=== PATIENT | female | born 1965 | race Two or more races ===

== ENCOUNTER 2016-06-11 06:45 | Inpatient (IN) | payer MEDICAID ==
[~2016-06-11] VITALS: Ht 154.9 cm; Wt 63.0 kg
[2016-06-11 06:45] VITALS: BP 105/63
[~2016-06-11 06:45] MED LIST: FERROUS SULFAT325 M2 ORAL; FOLIC ACID0.4 MG ORAL; MULTI VITAMIN1 EACH ORAL; NKM
--- NOTE | 2016-06-11 07:05 | Emergency Room Report ---
History of Present Illness General Chief Complaint: Syncope Source: Patient Present Illness HPI 51 YO F with known uterine fibroid presents with heavy non menstrual bleeding since last night. States she used " a whole box of pads." Passed out in bathroom today, denies any trauma. Denies precipitating headache, chest pain, SOB, syncope. States bleeding currently has subsided. notes she has pallor. She currently c/o left sided body pain. Denies abd pain, nausea/ vomiting, diarrhea, fever?chills, urinary complaints. Dec 2015 and Apr 2015 admissions also for anemia. Has not followed up with [facility] E[facility] or had sono since ?Apr 2015 per patient. EMR states "There are 2-3 uterine fibroids measuring up to 2.7 cm" in Apr 2015 sono. Allergies: Coded Allergies: NO KNOWN ALLERGIES (Unverified Allergy, Unknown, 05/12/15) Patient History Past Medical History: other - uterine fibroids Past Surgical History: none Pertinent Family History: none Social History: Denies: alcohol use, drug use, smoking Last Menstrual Period: May Now: No Immunizations: UTD Reviewed Nursing Documentation: PMH: Agreed, PSxH: Agreed Nursing Documentation-PMH Past Medical History: No Stated History Hx Cardiac Problems: No Hx Cancer: No Hx Gastrointestinal Problems: No Hx Neurological Problems: No Review of Systems All Other Systems: negative except mentioned in HPI Physical Exam Vital Signs Date Time Temp Pulse Resp B/P Pulse Ox O2 Delivery O2 Flow Rate FiO2 06/11/16 06:40 98.2 83 16 113/86 99 Room Air Sp02 EP Interpretation: reviewed, normal General Appearance: normal inspection, well appearing, no apparent distress, alert, GCS 15, non-toxic Head: normocephalic, atraumatic Eyes: bilateral eye EOMI, bilateral eye PERRL ENT: normal ENT inspection, hearing grossly normal, normal voice Neck: normal inspection, full range of motion, supple, no bony tend Respiratory: normal inspection, lungs clear, normal breath sounds, no respiratory distress, no retraction, no wheezing Cardiovascular #1: regular rate, rhythm, no edema Gastrointestinal: normal inspection, normal bowel sounds, non tender, soft, no guarding, no hernia Genitourinary: no CVA tenderness, other - no dalton vaginal hemorrage currently Musculoskeletal: normal inspection, back normal, normal range of motion, So' s Sign negative Neurologic: normal inspection, alert, oriented x3, responsive, painter plate III-XII nml as tested, motor strength/tone normal, speech normal Psychiatric: normal inspection, judgement/insight normal, mood/affect normal Skin: normal inspection, no rash, pallor Medical Decision Making Diagnostic Impression: Primary Impression: Syncope Qualified Codes: R55 - Syncope and collapse Additional Impression: Anemia Qualified Codes: D64.9 - Anemia, unspecified ER Course 51 YO F with likely re-bleeding of known uterine fibroid. VSS. Afebrile. Pallor obvious on exam Abd is benign, no focal ttp on exam Labs show Hb 6.7, Coags and platelets normal. ECG is NSR. Troponin 0. Unlikely cardiac cause of syncope given vaginal bleeding and anemia Transfusing 2U Endorsed to Dr Santoyo for syncope/anemia at 939am for tele admission Pelvic sono to quantify fibroids is pending. I doubt degenerative fibroid given benign exam EKG Diagnostic Results Rate: normal Rhythm: NSR ST Segments: no acute changes ASA given to the pt in ED: No Rhythm Strip Diag. Results EP Interpretation: yes Rate: 84 Rhythm: NSR, no PVC's, no ectopy Last Vital Signs Date Time Temp Pulse Resp B/P Pulse Ox O2 Delivery O2 Flow Rate FiO2 06/11/16 06:45 98.5 84 14 105/63 99 Room Air Status: improved Disposition: ADMITTED INPATIENT Condition: Serious GALILEO SANTIAGO M.D. Jun 11, 2016 07:05
[2016-06-11 07:52] LABS: PROTHROMBIN TIME 10.5 SEC (9.30-11.50)
[2016-06-11 07:55] LABS: ALANINE AMINOTRANSFERASE 11 U/L (3-33); ALBUMIN/GLOBULIN RATIO 1.4 (1.0-2.7); ANION GAP 14 (5-15); ASPARTATE AMINO TRANSFERASE 12 U/L (5-40); CALCIUM 7.8 mg/dL (8.6-10.2); CARBON DIOXIDE 22 mEQ/L (20-30); CHLORIDE 102 mEQ/L (98-107); CREATININE 0.6 mg/dL (0.5-0.9); GLOMERULAR FILTRATION RATE > 60 mL/min (>60); HEMOLYSIS 1; LIPASE 23 U/L (< 60); POTASSIUM 4.1 mEQ/L (3.4-4.9); SODIUM 138 mEQ/L (135-145); TOTAL PROTEIN 6.4 g/dL (6.6-8.7)
[2016-06-11 07:57] LABS: APPEARANCE,URINE VERY CLOUDY; KETONES,URINE NEGATIVE (NEGATIVE); LEUKOCYTE ESTERASE ,URINE 2+ (NEGATIVE); NITRITE,URINE NEGATIVE (NEGATIVE); PH,URINE 6 (4.5-8.0); PROTEIN,URINE 3+ (NEGATIVE); UROBILINOGEN,URINE NORMAL MG/DL (0.0-1.0)
[2016-06-11 08:01] LABS: BACTERIA,URINE FEW /HPF; RBC,URINE TNTC /HPF (0 - 2); SQUAMOUS EPITHELIAL CELL,UR FEW /LPF (NONE/OCC)
[2016-06-11 09:21] LABS: MEAN CORPUSCULAR HEMOGLOBIN 19.5 PG (27.0-31.0); MEAN CORPUSCULAR HGB CONC 30.8 G/DL (32.0-36.0); MEAN CORPUSCULAR VOLUME 64 FL (80-99); MEAN PLATELET VOLUME 7.7 FL (6.5-10.1); PLATELET COUNT 318 K/UL (150-450); RED BLOOD COUNT 3.43 M/UL (4.20-5.40); RED CELL DISTRIBUTION WIDTH 18.2 % (11.6-14.8)
[2016-06-11 10:13] LABS: ANISOCYTOSIS 1+; BAND NEUTROPHILS % (MANUAL) 1 % (0-8); BASOPHILS % (MANUAL) 0 % (0-2); EOSINOPHILS % (MANUAL) 14 % (0-3); HYPOCHROMASIA 1+; LYMPHOCYTES % (MANUAL) 7 % (20-45); MICROCYTES 2+; NEUTROPHILS % (MANUAL) 73 % (45-75); PLATELET ESTIMATE ADEQUATE; PLATELET MORPHOLOGY NORMAL; TOTAL CELLS COUNTED 100
[2016-06-11 10:15] LABS: POLYCHROMASIA OCCASIONAL
[2016-06-11] MEDS ORDERED: Tylenol #3 tab (300mg/30mg) ORAL ONE (10:15)
[2016-06-11 11:28] VITALS: BP 100/53
[2016-06-11] MEDS ORDERED: Morphine Sulfate 2mg/ml Inj IVP PRN (11:45)
[2016-06-11] MEDS ORDERED: Miralax 17gm pkt ORAL PRN (11:45)
[2016-06-11] MEDS ORDERED: Mylanta II UD 30ml ORAL PRN (11:45)
[2016-06-11] MEDS ORDERED: LORazepam Inj 2mg/ml 1ml IV PRN (11:45)
[2016-06-11 11:48] VITALS: BP 100/64
[2016-06-11 14:01] LABS: PATH BLOOD SMEAR/OMC SENT TO PATHOLOGIST; RETICULOCYTE COUNT 1.8 % (0.0-2.0)
[2016-06-11 14:10] LABS: ERYTHROCYTE SEDIMENTATION RATE 24 MM/HR (0-20)
[2016-06-11 16:00] VITALS: BP 116/65
--- NOTE | 2016-06-11 16:10 | Infectious Diseases Prog Note ---
Assessment/Plan Problems: (1) UTI (urinary tract infection) Assessment & Plan: will send urine for culture , and start ceftriaxone empirically for now (2) Anemia Assessment & Plan: due to fibroid bleeding , recommend HOUSEKEEPER/CUSTODIAN/LAUNDRY WORKER consult, and monitor H&H, transfuse as needed (3) Syncope Assessment & Plan: suspect due to blood loss, continue tele monitor, monitor H& H transfuse as needed, consult neurology (4) Menometrorrhagia Assessment & Plan: due to fibroids bleeding, consult HOUSEKEEPER/CUSTODIAN/LAUNDRY WORKER, and follow up as an outpatient Subjective Allergies: Coded Allergies: NO KNOWN ALLERGIES (Unverified Allergy, Unknown, 05/12/15) Objective Vital Signs Last 24 Hour Vital Signs Date Time Temp Pulse Resp B/P Pulse Ox O2 Delivery O2 Flow Rate FiO2 06/11/16 11:48 98.8 89 14 100/64 99 Room Air 06/11/16 11:48 98.7 91 14 100/53 99 Room Air 06/11/16 11:31 98.7 06/11/16 11:28 98.7 91 14 100/53 99 Room Air 06/11/16 06:45 98.5 84 14 105/63 99 Room Air 06/11/16 06:40 98.2 83 16 113/86 99 Room Air Height (Feet): 5 Height (Inches): 1.00 Weight (Pounds): 139 Laboratory Tests Test 06/11/16 07:14 06/11/16 09:15 Prothrombin Time 10.5 SEC (9.30-11.50) Prothromb Time International Ratio 1.0 (0.9-1.1) Activated Partial Thromboplast Time 24 SEC (23-33) Urine Color Red Urine Appearance Very cloudy Urine pH 6 (4.5-8.0) Urine Specific [place] 1.020 (1.005-1.035) Urine Protein 3+ (NEGATIVE) H Urine Glucose (UA) Negative (NEGATIVE) Urine Ketones Negative (NEGATIVE) Urine Occult Blood 5+ (NEGATIVE) H Urine Nitrite Negative (NEGATIVE) Urine Bilirubin Negative (NEGATIVE) Urine Urobilinogen Normal MG/DL (0.0-1.0) Urine Leukocyte Esterase 2+ (NEGATIVE) H Urine RBC Tntc /HPF (0 - 2) H Urine WBC 5-10 /HPF (0 - 2) H Urine Squamous Epithelial Cells Few /LPF (NONE/OCC) Urine Bacteria Few /HPF (NONE) Sodium Level 138 mEQ/L (135-145) Potassium Level 4.1 mEQ/L (3.4-4.9) Chloride Level 102 mEQ/L (98-107) Carbon Dioxide Level 22 mEQ/L (20-30) Anion Gap 14 (5-15) Blood Urea Nitrogen 15 mg/dL (7-23) Creatinine 0.6 mg/dL (0.5-0.9) Estimat Glomerular Filtration Rate > 60 mL/min (>60) Glucose Level 122 mg/dL (74-106) H Calcium Level 7.8 mg/dL (8.6-10.2) L Total Bilirubin < 0.2 mg/dL (0.0-1.2) Aspartate Amino Transf (AST/SGOT) 12 U/L (5-40) Alanine Aminotransferase (ALT/SGPT) 11 U/L (3-33) Alkaline Phosphatase 60 U/L (35-104) Total Protein 6.4 g/dL (6.6-8.7) L Albumin 3.8 g/dL (3.5-5.2) Globulin 2.6 g/dL Albumin/Globulin Ratio 1.4 (1.0-2.7) Lipase 23 U/L (< 60) White Blood Count 10.0 K/UL (4.8-10.8) Red Blood Count 3.43 M/UL (4.20-5.40) L Hemoglobin 6.7 G/DL (12.0-16.0) *L Hematocrit 21.8 % (37.0-47.0) L Mean Corpuscular Volume 64 FL (80-99) L Mean Corpuscular Hemoglobin 19.5 PG (27.0-31.0) L Mean Corpuscular Hemoglobin Concent 30.8 G/DL (32.0-36.0) L Red Cell Distribution Width 18.2 % (11.6-14.8) H Platelet Count 318 K/UL (150-450) Mean Platelet Volume 7.7 FL (6.5-10.1) Neutrophils (%) (Auto) % (45.0-75.0) Lymphocytes (%) (Auto) % (20.0-45.0) Monocytes (%) (Auto) % (1.0-10.0) Eosinophils (%) (Auto) % (0.0-3.0) Basophils (%) (Auto) % (0.0-2.0) Differential Total Cells Counted 100 Neutrophils % (Manual) 73 % (45-75) Lymphocytes % (Manual) 7 % (20-45) L Monocytes % (Manual) 5 % (1-10) Eosinophils % (Manual) 14 % (0-3) H Basophils % (Manual) 0 % (0-2) Band Neutrophils 1 % (0-8) Platelet Estimate Adequate Platelet Morphology Normal Polychromasia Occasional Hypochromasia 1+ Anisocytosis 1+ Microcytosis 2+ Erythrocyte Sedimentation Rate 24 MM/HR (0-20) H Reticulocyte Count 1.8 % (0.0-2.0) Iron Level 16 ug/dL (37-145) L Total Iron Binding Capacity 344 ug/dL (250-400) Percent Iron Saturation 5 % (15-50) L Unsaturated Iron Binding 328 ug/dL (112-346) Lactate Dehydrogenase 167 U/L (135-230) Carcinoembryonic Antigen 0.9 ng/mL Vitamin B12 Level 479 pg/mL (211-946) Folate Pending Current Medications Medications (Trade) Dose Ordered Sig/Kaylee Route PRN Reason Start Time Stop Time Status Last Admin Dose Admin Acetaminophen (Tylenol) 650 mg Q4H PRN ORAL T>100.5 06/11/16 11:45 07/11/16 11:44 Al Hydroxide/Mg Hydroxide (Mylanta II) 30 ml Q6H PRN ORAL dyspepsia 06/11/16 11:45 07/11/16 11:44 Dextrose (Dextrose 50%) STAT PRN IV Hypoglycemia 06/11/16 11:45 07/11/16 11:44 Lorazepam (Ativan 2mg/ml 1ml) 0.5 mg Q4H PRN IV For Anxiety 06/11/16 11:45 06/18/16 11:44 Morphine Sulfate (Morphine Sulfate) 1 mg Q4H PRN IVP PAIN 4-10 06/11/16 11:45 06/18/16 11:44 Ondansetron HCl (Zofran) 4 mg Q6H PRN IVP Nausea & Vomiting 06/11/16 11:45 07/11/16 11:44 Polyethylene Glycol (Miralax) 17 gm HSPRN PRN ORAL Constipation 06/11/16 11:45 2/25/17 11:44 Zolpidem Tartrate (Ambien) 5 mg HSPRN PRN ORAL Insomnia 06/11/16 21:00 07/11/16 20:59 Teo Wade M.D. Jun 11, 2016 16:10
[2016-06-11] MEDS ORDERED: cefTRIAXone 1 GM in D5W 55 ML IVPB SCH (18:00)
--- NOTE | 2016-06-11 18:32 | Cardiology Progress Note ---
Assessment/Plan Assessment/Plan The patient is seen and examined, full consult note is dictated. Objective Last 24 Hour Vital Signs Date Time Temp Pulse Resp B/P Pulse Ox O2 Delivery O2 Flow Rate FiO2 06/11/16 16:00 99.1 98 21 116/65 98 Room Air 06/11/16 11:48 98.8 89 14 100/64 99 Room Air 06/11/16 11:48 98.7 91 14 100/53 99 Room Air 06/11/16 11:31 98.7 06/11/16 11:28 98.7 91 14 100/53 99 Room Air 06/11/16 06:45 98.5 84 14 105/63 99 Room Air 06/11/16 06:40 98.2 83 16 113/86 99 Room Air Intake and Output 06/10/16 06/11/16 19:00 07:00 Output Total 0 ml Balance 0 ml Output Urine Total 0 ml Laboratory Tests Test 06/11/16 07:14 06/11/16 09:15 Prothrombin Time 10.5 SEC (9.30-11.50) Prothromb Time International Ratio 1.0 (0.9-1.1) Activated Partial Thromboplast Time 24 SEC (23-33) Urine Color Red Urine Appearance Very cloudy Urine pH 6 (4.5-8.0) Urine Specific [place] 1.020 (1.005-1.035) Urine Protein 3+ (NEGATIVE) H Urine Glucose (UA) Negative (NEGATIVE) Urine Ketones Negative (NEGATIVE) Urine Occult Blood 5+ (NEGATIVE) H Urine Nitrite Negative (NEGATIVE) Urine Bilirubin Negative (NEGATIVE) Urine Urobilinogen Normal MG/DL (0.0-1.0) Urine Leukocyte Esterase 2+ (NEGATIVE) H Urine RBC Tntc /HPF (0 - 2) H Urine WBC 5-10 /HPF (0 - 2) H Urine Squamous Epithelial Cells Few /LPF (NONE/OCC) Urine Bacteria Few /HPF (NONE) Sodium Level 138 mEQ/L (135-145) Potassium Level 4.1 mEQ/L (3.4-4.9) Chloride Level 102 mEQ/L (98-107) Carbon Dioxide Level 22 mEQ/L (20-30) Anion Gap 14 (5-15) Blood Urea Nitrogen 15 mg/dL (7-23) Creatinine 0.6 mg/dL (0.5-0.9) Estimat Glomerular Filtration Rate > 60 mL/min (>60) Glucose Level 122 mg/dL (74-106) H Calcium Level 7.8 mg/dL (8.6-10.2) L Total Bilirubin < 0.2 mg/dL (0.0-1.2) Aspartate Amino Transf (AST/SGOT) 12 U/L (5-40) Alanine Aminotransferase (ALT/SGPT) 11 U/L (3-33) Alkaline Phosphatase 60 U/L (35-104) Total Protein 6.4 g/dL (6.6-8.7) L Albumin 3.8 g/dL (3.5-5.2) Globulin 2.6 g/dL Albumin/Globulin Ratio 1.4 (1.0-2.7) Lipase 23 U/L (< 60) White Blood Count 10.0 K/UL (4.8-10.8) Red Blood Count 3.43 M/UL (4.20-5.40) L Hemoglobin 6.7 G/DL (12.0-16.0) *L Hematocrit 21.8 % (37.0-47.0) L Mean Corpuscular Volume 64 FL (80-99) L Mean Corpuscular Hemoglobin 19.5 PG (27.0-31.0) L Mean Corpuscular Hemoglobin Concent 30.8 G/DL (32.0-36.0) L Red Cell Distribution Width 18.2 % (11.6-14.8) H Platelet Count 318 K/UL (150-450) Mean Platelet Volume 7.7 FL (6.5-10.1) Neutrophils (%) (Auto) % (45.0-75.0) Lymphocytes (%) (Auto) % (20.0-45.0) Monocytes (%) (Auto) % (1.0-10.0) Eosinophils (%) (Auto) % (0.0-3.0) Basophils (%) (Auto) % (0.0-2.0) Differential Total Cells Counted 100 Neutrophils % (Manual) 73 % (45-75) Lymphocytes % (Manual) 7 % (20-45) L Monocytes % (Manual) 5 % (1-10) Eosinophils % (Manual) 14 % (0-3) H Basophils % (Manual) 0 % (0-2) Band Neutrophils 1 % (0-8) Platelet Estimate Adequate Platelet Morphology Normal Polychromasia Occasional Hypochromasia 1+ Anisocytosis 1+ Microcytosis 2+ Erythrocyte Sedimentation Rate 24 MM/HR (0-20) H Reticulocyte Count 1.8 % (0.0-2.0) Iron Level 16 ug/dL (37-145) L Total Iron Binding Capacity 344 ug/dL (250-400) Percent Iron Saturation 5 % (15-50) L Unsaturated Iron Binding 328 ug/dL (112-346) Lactate Dehydrogenase 167 U/L (135-230) Carcinoembryonic Antigen 0.9 ng/mL Vitamin B12 Level 479 pg/mL (211-946) Folate Pending ELVIS BROOKE Jun 11, 2016 18:32
--- NOTE | 2016-06-11 19:07 | Consultation ---
Consult Note Consult Note DATE OF CONSULTATION: 06/11/16 REFERRING PHYSICIAN: Krunal Wills M.D. REASON FOR CONSULTATION: Evaluation of severe iron deficiency anemia. IDENTIFICATION: 51-year-old female with past medical history significant for dysmenorrhea, multiple admission for anemia before who presents at this time to [facility] with weakness as well as chest tightness and shortness of breath as wel las syncope. Upon admission to the ER, CBC was performed and she was found to have hemoglobin 6.7, hematocrit 18, and platelet count 318,000. She has used 36 pads over the course of 2 days for vaginal bleeding and has a hx of fibroids. Hematology was therefore consulted for further evaluation and treatment. She has not been following up with her gynencologist for several months, has never had surgery for uterus. Per discussion with her and her children, she says that she has had these symptoms for the past one to two years. The patient otherwise denies any nausea, vomiting, chest pain, or shortness of breath. PAST MEDICAL HISTORY: Dysmenorrhea. Fibroids. Anemia iron deficiency PAST SURGICAL HISTORY: None. MEDICATIONS: Ferrous sulfate FAMILY HISTORY: Noncontributory. SOCIAL HISTORY: No drug use, alcohol, or smoking. ALLERGIES: No known drug allergies. REVIEW OF SYSTEMS: General: Some weight loss and some fatigue; however, no fever or chills. Skin : No rashes. No itching. HEENT: No headaches, visual changes or double vision, stuffiness or nose discharge, or bleeding from throat. Neck: No lumps in neck or changes in breasts. Respiratory: No cough, sputum, or coughing up blood. Cardiovascular: No chest pain, discomfort, or tightness. Gastrointestinal: No swallowing difficulties or heart burn. Musculoskeletal: No muscle or joint pain. Urinary: No frequency, urgency, or burning. Neurologic: No dizziness, fainting, or seizures. Hematologic: Some bleeding noted recently over the past week. Endocrine: No heat or cold intolerance. Psychiatric: No nervousness, stress, or depression. PHYSICAL EXAMINATION: GENERAL: The patient is in no acute distress. VITAL SIGNS: Date Time Temp Pulse Resp B/P Pulse Ox O2 Delivery O2 Flow Rate FiO2 06/11/16 16:00 99.1 98 21 116/65 98 Room Air 06/11/16 11:48 98.8 89 14 100/64 99 Room Air 06/11/16 11:48 98.7 91 14 100/53 99 Room Air 06/11/16 11:31 98.7 06/11/16 11:28 98.7 91 14 100/53 99 Room Air 06/11/16 06:45 98.5 84 14 105/63 99 Room Air 06/11/16 06:40 98.2 83 16 113/86 99 Room Air PULMONARY: Decreased breath sounds bilaterally. No crackles, wheezes, or rales. CARDIOVASCULAR: Regular rate and rhythm. No MGR. ABDOMEN: Soft, nontender, and nondistended. EXTREMITIES: No cyanosis, clubbing, or edema. LABORATORY DATA: Laboratory Tests Test 06/11/16 07:14 06/11/16 09:15 Prothrombin Time 10.5 SEC (9.30-11.50) Prothromb Time International Ratio 1.0 (0.9-1.1) Activated Partial Thromboplast Time 24 SEC (23-33) Urine Color Red Urine Appearance Very cloudy Urine pH 6 (4.5-8.0) Urine Specific [place] 1.020 (1.005-1.035) Urine Protein 3+ (NEGATIVE) H Urine Glucose (UA) Negative (NEGATIVE) Urine Ketones Negative (NEGATIVE) Urine Occult Blood 5+ (NEGATIVE) H Urine Nitrite Negative (NEGATIVE) Urine Bilirubin Negative (NEGATIVE) Urine Urobilinogen Normal MG/DL (0.0-1.0) Urine Leukocyte Esterase 2+ (NEGATIVE) H Urine RBC Tntc /HPF (0 - 2) H Urine WBC 5-10 /HPF (0 - 2) H Urine Squamous Epithelial Cells Few /LPF (NONE/OCC) Urine Bacteria Few /HPF (NONE) Sodium Level 138 mEQ/L (135-145) Potassium Level 4.1 mEQ/L (3.4-4.9) Chloride Level 102 mEQ/L (98-107) Carbon Dioxide Level 22 mEQ/L (20-30) Anion Gap 14 (5-15) Blood Urea Nitrogen 15 mg/dL (7-23) Creatinine 0.6 mg/dL (0.5-0.9) Estimat Glomerular Filtration Rate > 60 mL/min (>60) Glucose Level 122 mg/dL (74-106) H Calcium Level 7.8 mg/dL (8.6-10.2) L Total Bilirubin < 0.2 mg/dL (0.0-1.2) Aspartate Amino Transf (AST/SGOT) 12 U/L (5-40) Alanine Aminotransferase (ALT/SGPT) 11 U/L (3-33) Alkaline Phosphatase 60 U/L (35-104) Total Protein 6.4 g/dL (6.6-8.7) L Albumin 3.8 g/dL (3.5-5.2) Globulin 2.6 g/dL Albumin/Globulin Ratio 1.4 (1.0-2.7) Lipase 23 U/L (< 60) White Blood Count 10.0 K/UL (4.8-10.8) Red Blood Count 3.43 M/UL (4.20-5.40) L Hemoglobin 6.7 G/DL (12.0-16.0) *L Hematocrit 21.8 % (37.0-47.0) L Mean Corpuscular Volume 64 FL (80-99) L Mean Corpuscular Hemoglobin 19.5 PG (27.0-31.0) L Mean Corpuscular Hemoglobin Concent 30.8 G/DL (32.0-36.0) L Red Cell Distribution Width 18.2 % (11.6-14.8) H Platelet Count 318 K/UL (150-450) Mean Platelet Volume 7.7 FL (6.5-10.1) Neutrophils (%) (Auto) % (45.0-75.0) Lymphocytes (%) (Auto) % (20.0-45.0) Monocytes (%) (Auto) % (1.0-10.0) Eosinophils (%) (Auto) % (0.0-3.0) Basophils (%) (Auto) % (0.0-2.0) Differential Total Cells Counted 100 Neutrophils % (Manual) 73 % (45-75) Lymphocytes % (Manual) 7 % (20-45) L Monocytes % (Manual) 5 % (1-10) Eosinophils % (Manual) 14 % (0-3) H Basophils % (Manual) 0 % (0-2) Band Neutrophils 1 % (0-8) Platelet Estimate Adequate Platelet Morphology Normal Polychromasia Occasional Hypochromasia 1+ Anisocytosis 1+ Microcytosis 2+ Erythrocyte Sedimentation Rate 24 MM/HR (0-20) H Reticulocyte Count 1.8 % (0.0-2.0) Iron Level 16 ug/dL (37-145) L Total Iron Binding Capacity 344 ug/dL (250-400) Percent Iron Saturation 5 % (15-50) L Unsaturated Iron Binding 328 ug/dL (112-346) Lactate Dehydrogenase 167 U/L (135-230) Carcinoembryonic Antigen 0.9 ng/mL Vitamin B12 Level 479 pg/mL (211-946) Folate Pending ASSESSMENT: 1. Anemia secondary iron deficiency to likely menstrual bleeding. Iron panel shows iron deficiency similar to prior ones, will begin iron IV 2. Anemia secondary to menstrual bleeding 3. Decreased hemoglobin and hematocrit, rule out gastrointestinal bleed. 4. UTI hx, infection 5. Dehydration. 6. Syncope 7. Menorrhagia RECOMMENDATIONS: 1. Monitor counts. 2. Transfuse if needed. Hgb goal >7 3. Send for ferritin 4. Imaging reviewed 5. Start the patient on Venofer 6. Supportive care. 7. Nutritional support. 8. Discussed with staff. Thank you, Dr. Krunal Wills, for this kind referral. Please do not hesitate to contact me with any further questions. MD Jo Mora Roman L. Jun 11, 2016 19:07
[2016-06-11 20:00] VITALS: BP 130/72
[2016-06-11] MEDS ORDERED: Zolpidem 5mg tab ORAL PRN (21:00)
--- NOTE | 2016-06-11 22:37 | Consultation ---
DATE OF CONSULTATION: INFECTIOUS DISEASE CONSULTATION REQUESTING PHYSICIAN: Krunal Wills M.D. REASON FOR CONSULTATION: Urinary tract infection. Recommendation for antibiotics therapy HISTORY OF PRESENT ILLNESS: The patient is a 51-year-old female with history of uterine fibroids, presented to [facility] with heavy menstrual bleeding and syncopal episode. The patient was on her period about a week ago, then it stopped as usual, but last two days, she started having heavy bleeding again with right lower quadrant abdominal pain. The patient was going to the bathroom more frequently. Denied any nausea or vomiting. She had diarrhea. She felt that she had fever, but no chills. Denied any cough or shortness of breath. The patient evaluated with CIVIL ENGINEERING DESIGN DRAFTSPERSON last year as an outpatient and she had a Pap smear that was normal as per her report. She has been admitted here to the hospital in December 2015 for the menstrual bleeding and she was transfused blood and discharged home. The patient had urinalysis, showed evidence of urine infection. So, I was consulted by the primary provider for antibiotics recommendation. PAST MEDICAL HISTORY: Significant for uterine fibroids and vaginal bleeding. PAST SURGICAL HISTORY: Negative. MEDICATIONS: She is on Ambien, Tylenol, morphine sulfate, MiraLAX, Zofran, Ativan and Mylanta. ALLERGIES: She has no known drug allergy. 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 REVIEW OF SYSTEMS: A 12-point of system reviewed were all negative apart from the one I mentioned above in my History and Physical. PHYSICAL EXAMINATION: GENERAL: The patient is middle-aged female, lying in bed, awake, alert, not in distress. VITAL SIGNS: Temperature 99.1 degrees, pulse 98, respirations 21, blood pressure 116/65, and pulse oximetry 98% on room air. HEENT: Normocephalic and atraumatic. Pupils are reactive to light equally. Pale sclera. Dry oral mucosa. No exudate. NECK: Supple. No lymphadenopathy. CARDIOVASCULAR: Regular rate and rhythm. No murmur. LUNGS: Clear bilaterally. No wheezing or rhonchi. ABDOMEN: Soft, nontender, and nondistended. Positive bowel sounds. No hepatosplenomegaly or ascites. EXTREMITIES: No edema. No cyanosis. LABORATORY AND DIAGNOSTIC DATA: White count 10,000, hemoglobin 6.7, hematocrit 21.8 and platelet count 318,000. BUN of 15 and creatinine of 0.6. Calcium of 7.8. Iron of 16. Alkaline phosphatase of 60. Urinalysis showed +2 leukocyte esterase, WBC 5 to 10, urine bacteria. ASSESSMENT AND PLAN: 1. Urinary tract infection. We will send urine for culture and start ceftriaxone empirically for now. 2. Anemia due to fibroids bleeding, most likely recommend CIVIL ENGINEERING DESIGN DRAFTSPERSON consultation for immediate intervention. Monitor hemoglobin and hematocrit and transfuse blood as needed. 3. Syncope, suspect due to blood loss. Continue school lunch monitor. Monitor hemoglobin and hematocrit, transfuse blood as needed. Consult Neurology. 4. Menometrorrhagia due to fibroid bleeding. Consult CIVIL ENGINEERING DESIGN DRAFTSPERSON. Follow up with as an outpatient. Monitor hemoglobin and hematocrit. Thank you. Teo Wade M.D. DR: KARI JOB#: [id number] CC:
--- NOTE | 2016-06-11 22:57 | History and Physical Report ---
DATE OF ADMISSION: 06/11/2016 TIME: 3 p.m. CONSULTANTS: 1. Dr. Nieves. 2. Morena Santoyo M.D. 3. Dr. Osorio. 4. Damaso Gorman M.D. 5. Tobin Bates M.D. CHIEF COMPLAINT: Syncope, weakness, fibroid bleed, and anemia. BRIEF HISTORY: This is a 51-year-old female with a history of fibroids recurrent bleeding, apparently has some bleeding at home with dizzy, lightheaded, possible syncope, who came to [place] and admitted to telemetry. Currently, calm, weak in bed. No compliance issues. PAST MEDICAL HISTORY: Bleeding fibroids, syncope and anemia. PAST SURGICAL HISTORY: None. MEDICATIONS: Ambien, Tylenol, morphine, MiraLAX, Zofran, Ativan, Mylanta, and dextrose. ALLERGIES: Denies. SOCIAL HISTORY: No smoking. No alcohol. No intravenous drug abuse. FAMILY HISTORY: Noncontributory. REVIEW OF SYSTEMS: No chest pain/short of breath. No nausea, vomiting or diarrhea. PHYSICAL EXAMINATION: GENERAL: Calm, alert and oriented x3, slight weak. VITAL SIGNS: Temperature 98 degrees, pulse 89, respirations 14, and blood pressure 100/64. CARDIOVASCULAR: No murmur. LUNGS: Poor exchange. ABDOMEN: Positive bowel sounds. Nontender and nondistended. EXTREMITIES: No cyanosis, clubbing or edema. NEUROLOGIC: The patient moves all extremities, but slightly weak. LABORATORY AND DIAGNOSTIC DATA: Hemoglobin of 6.7, otherwise CBC is normal. BMP show glucose 122, otherwise normal. Lipase 23. INR 1.0. Urinalysis, 5+ blood and 2+ leukocyte esterase. ASSESSMENT: 1. Bleeding fibroids. 2. Syncope. 3. Anemia. 4. Urinary tract infection. PLAN: Continue pre-medications and Cardiology and Neurology evaluation. ID evaluation by Dr. Wade. Resume home medications. OT/PT. Dietary evaluation. Transfuse. We will continue to follow this patient. Krunal Wills D.O. DR: XANDER JOB#: [id number] CC:
--- NOTE | 2016-06-11 23:28 | Consultation ---
DATE OF CONSULTATION: CARDIOLOGY CONSULTATION CONSULTING PHYSICIAN: Tobin Bates M.D. REFERRING PHYSICIAN: Krunal Wills D.O. REASON FOR CONSULTATION: Management of syncope. HISTORY OF PRESENT ILLNESS: The patient is a very unfortunate, 51-year-old female, who presents to the hospital with heavy menstrual bleed due to uterine fibroids. This condition is already known to her. She has had another syncopal event just about a year ago. She passed out in the bathroom. Denies any trauma. Denies any prior history of cardiac disease. Her found her to be very pale and decided to bring her over to the hospital. PAST MEDICAL HISTORY: Uterine fibroids. PAST SURGICAL HISTORY: None. SOCIAL HISTORY: Denies any tobacco, alcohol, or illicit drug use. REVIEW OF SYSTEMS: Twelve-system review done is essentially negative except what mentioned in the history of present illness. LIST OF MEDICATIONS: 1. Ferrous sulfate 325 mg p.o. three times daily. 2. Folic acid 1 mg p.o. daily. 3. Multivitamin 1 tablet p.o. daily. PHYSICAL EXAMINATION: VITAL SIGNS: Blood pressure is 100/53, pulse of 91, respirations of 14, temperature 98.7 degrees Fahrenheit, and O2 saturation 99% on room air. GENERAL: The patient is a very unfortunate, 51-year-old female, in no apparent respiratory distress. Alert and oriented x4. HEENT: Atraumatic and normocephalic. Anicteric. Pupils are equal, round, and reactive to light and accommodation. Extraocular muscles are intact. Conjunctival pallor. NECK: JVP less than 5 cm. No carotid bruit. Carotid upstroke is 2+ bilaterally. CARDIOVASCULAR: Normal S1 and S2. Regular rate and rhythm. Tachycardic. PMI is at fourth intercostal space in the midclavicular line. LUNGS: Clear to auscultation bilaterally. ABDOMEN: Soft, nontender, and nondistended. No hepatosplenomegaly. Positive bowel sounds. EXTREMITIES: No evidence of edema, clubbing, or cyanosis. LABORATORY FINDINGS: WBC 10.0, hemoglobin 6.7, hematocrit 21.8, and platelet count is 318,000. Sodium of 138, potassium is 4.1, chloride 102, bicarbonate 22, BUN of 15, creatinine 0.6, glucose is 122, and calcium is 7.8. INR is 1.0. A 12-lead electrocardiogram shows sinus rhythm at a rate of [address] axis. No ST or T-wave abnormalities. QT interval is 434 milliseconds, within normal limits. ASSESSMENT AND PLAN: The patient is a very unfortunate, 51-year-old female, seen in cardiology consultation at the request of Dr. Wills. 1. Syncope, most likely due to acute blood loss due to vaginal bleed secondary to uterine fibroids. The patient was also tachycardic relatively. She requires volume expansion with sodium containing liquids and IV fluids. The latest blood pressure is 116/65 mmHg. The patient requires correction of the underlying etiology, which is embolization of uterine fibroids or hysterectomy as guided by a chlorination operator. The patient states that she has not seen a chlorination operator despite the fact that she has had recurrent syncope due to acute blood loss. No further cardiac intervention is required at this time. 2. Profound anemia due to acute blood loss. Blood transfusion is recommended. We would like to thank, Dr. Wills, for allowing me to participate in the care of this patient. Tobin Bates M.D. DR: RIVAS JOB#: [id number] CC:
[2016-06-12 00:27] VITALS: BP 115/69
[2016-06-12 04:00] VITALS: BP 140/81
[2016-06-12 07:55] LABS: ALANINE AMINOTRANSFERASE 11 U/L (3-33); ALBUMIN/GLOBULIN RATIO 1.4 (1.0-2.7); ANION GAP 14 (5-15); ASPARTATE AMINO TRANSFERASE 11 U/L (5-40); CALCIUM 8.1 mg/dL (8.6-10.2); CARBON DIOXIDE 23 mEQ/L (20-30); CHLORIDE 100 mEQ/L (98-107); CREATININE 0.6 mg/dL (0.5-0.9); GLOMERULAR FILTRATION RATE > 60 mL/min (>60); HEMOLYSIS 2; POTASSIUM 3.8 mEQ/L (3.4-4.9); SODIUM 137 mEQ/L (135-145); TOTAL PROTEIN 6.6 g/dL (6.6-8.7)
[2016-06-12 07:56] VITALS: BP 120/65
[2016-06-12 07:57] LABS: BASOPHILS % (AUTO) 1.3 % (0.0-2.0); EOSINOPHILS % (AUTO) 12.3 % (0.0-3.0); LYMPHOCYTES % (AUTO) 13.6 % (20.0-45.0); MEAN CORPUSCULAR HEMOGLOBIN 22.4 PG (27.0-31.0); MEAN CORPUSCULAR HGB CONC 32.5 G/DL (32.0-36.0); MEAN CORPUSCULAR VOLUME 69 FL (80-99); MEAN PLATELET VOLUME 8.4 FL (6.5-10.1); MONOCYTES % (AUTO) 11.8 % (1.0-10.0); NEUTROPHILS % (AUTO) 60.9 % (45.0-75.0); PLATELET COUNT 306 K/UL (150-450); RED BLOOD COUNT 3.84 M/UL (4.20-5.40); RED CELL DISTRIBUTION WIDTH 22.2 % (11.6-14.8); WHITE BLOOD COUNT 10.6 K/UL (4.8-10.8)
--- NOTE | 2016-06-12 08:41 | General Progress Note ---
Assessment/Plan Assessment/Plan ASSESSMENT: 1. Anemia secondary iron deficiency to likely menstrual bleeding. Iron panel shows iron deficiency similar to prior ones, will begin continue IV 2. Anemia secondary to menstrual bleeding 3. Decreased hemoglobin and hematocrit, rule out gastrointestinal bleed. 4. UTI hx, infection 5. Dehydration. 6. Syncope 7. Menorrhagia RECOMMENDATIONS: 1. Monitor counts. 2. Transfuse if needed. Hgb goal >7 3. Begin on iv iron given ferritin <10 4. Imaging reviewed 5. Gynecology eval as outpatient 6. Supportive care. 7. Nutritional support. 8. Discussed with staff. Thank you, Parmjit Osorio MD Subjective Constitutional: Reports: no symptoms HEENT: Reports: no symptoms Cardiovascular: Reports: no symptoms Respiratory: Reports: no symptoms Gastrointestinal/Abdominal: Reports: poor appetite Genitourinary: Reports: no symptoms Neurologic/Psychiatric: Reports: no symptoms Endocrine: Reports: no symptoms Hematologic/Lymphatic: Reports: anemia Allergies: Coded Allergies: NO KNOWN ALLERGIES (Unverified Allergy, Unknown, 05/12/15) Subjective stable, h/h better, less symptomatic, on iv iron Objective Last 24 Hour Vital Signs Date Time Temp Pulse Resp B/P Pulse Ox O2 Delivery O2 Flow Rate FiO2 06/12/16 07:56 99.1 86 18 120/65 96 Room Air 06/12/16 04:00 84 06/12/16 04:00 99.0 91 19 140/81 98 Room Air 06/12/16 00:27 98.2 87 20 115/69 96 Room Air 06/12/16 00:00 92 06/11/16 20:00 100 06/11/16 20:00 103 20 130/72 98 Room Air 06/11/16 19:07 100.9 06/11/16 16:00 99.1 98 21 116/65 98 Room Air 06/11/16 16:00 100 06/11/16 11:48 98.8 89 14 100/64 99 Room Air 06/11/16 11:48 98.7 91 14 100/53 99 Room Air 06/11/16 11:31 98.7 06/11/16 11:28 98.7 91 14 100/53 99 Room Air Intake and Output 06/11/16 06/12/16 19:00 07:00 Intake Total 55 ml 280 ml Balance 55 ml 280 ml Intake IV Total 55 ml Blood Product 280 ml # Voids 2 Laboratory Tests 06/11/16 09:15: White Blood Count 10.0, Red Blood Count 3.43L, Hemoglobin 6.7*L, Hematocrit 21.8L, Mean Corpuscular Volume 64L, Mean Corpuscular Hemoglobin 19.5L, Mean Corpuscular Hemoglobin Concent 30.8L, Red Cell Distribution Width 18.2H, Platelet Count 318, Mean Platelet Volume 7.7, Neutrophils (%) (Auto) , Lymphocytes (%) (Auto) , Monocytes (%) (Auto) , Eosinophils (%) (Auto) , Basophils (%) (Auto) , Differential Total Cells Counted 100, Neutrophils % ( Manual) 73, Lymphocytes % (Manual) 7L, Monocytes % (Manual) 5, Eosinophils % ( Manual) 14H, Basophils % (Manual) 0, Band Neutrophils 1, Platelet Estimate Adequate, Platelet Morphology Normal, Polychromasia Occasional, Hypochromasia 1+ , Anisocytosis 1+, Microcytosis 2+, Erythrocyte Sedimentation Rate 24H, Reticulocyte Count 1.8, Iron Level 16L, Total Iron Binding Capacity 344, Percent Iron Saturation 5L, Unsaturated Iron Binding 328, Ferritin 6L, Lactate Dehydrogenase 167, Carcinoembryonic Antigen 0.9, Vitamin B12 Level 479, Folate [ Pending] 06/12/16 06:35: White Blood Count 10.6, Red Blood Count 3.84L, Hemoglobin 8.6L, Hematocrit 26.5L , Mean Corpuscular Volume 69L, Mean Corpuscular Hemoglobin 22.4L, Mean Corpuscular Hemoglobin Concent 32.5, Red Cell Distribution Width 22.2H, Platelet Count 306, Mean Platelet Volume 8.4, Neutrophils (%) (Auto) 60.9, Lymphocytes (%) (Auto) 13.6L, Monocytes (%) (Auto) 11.8H, Eosinophils (%) (Auto ) 12.3H, Basophils (%) (Auto) 1.3, Sodium Level 137, Potassium Level 3.8, Chloride Level 100, Carbon Dioxide Level 23, Anion Gap 14, Blood Urea Nitrogen 11, Creatinine 0.6, Estimat Glomerular Filtration Rate > 60, Glucose Level 110H , Calcium Level 8.1L, Total Bilirubin 0.3, Aspartate Amino Transf (AST/SGOT) 11 , Alanine Aminotransferase (ALT/SGPT) 11, Alkaline Phosphatase 61, Total Protein 6.6, Albumin 3.9, Globulin 2.7, Albumin/Globulin Ratio 1.4, Thyroid Stimulating Hormone (TSH) 2.020 Height (Feet): 5 Height (Inches): 1.00 Weight (Pounds): 139 General Appearance: no apparent distress EENT: TMs normal Neck: supple Cardiovascular: normal rate Respiratory/Chest: normal breath sounds Abdomen: no organomegaly Extremities: non-tender Edema: no edema noted Leg (L), no edema noted Leg (R) Edema: mild edema Neurologic: alert Skin: warm/dry Parmjit Osorio Jun 12, 2016 08:41
[2016-06-12 11:22] VITALS: BP 109/55
--- NOTE | 2016-06-12 13:51 | Diagnostic Imaging Report ---
Indication:Lower abdominal and pelvic pain Technique: Grayscale and duplex Doppler imaging of the pelvis performed utilizing a transabdominal scan and endovaginal scan. Comparison: None Findings: There is a mass in the uterus measuring 4.8 x 5.7 cm. The mass is seen on the dorsal aspect of the uterine fundus and is likely an intramural fibroid. The endometrium appears to be displaced anteriorly due to the mass. The endometrium is not seen well on this study. There is questionable identification of part of the endometrium in the lower uterine segment. This focus measures about 11 mm in thickness but is not definitely the endometrium. In the left ovary there is ovoid hypoechoic mass measuring about 2 cm most likely a hemorrhagic cyst. Recommend obtaining a 6 week followup. A simple cyst noted in the right ovary measuring 1.5 cm. There is no free fluid. The uterus measures 11 x 11 x 8 cm. Right ovary is 3 x 3 x 1.4 CM. Left ovary 3.4 x 3.3 x 1.4 CM. Impression: Prominent central uterine fibroid. Endometrium not evaluated well on this study. Left ovarian mass probably a hemorrhagic cyst. 6 week followup recommended.
[2016-06-12 16:00] VITALS: BP 104/58
[2016-06-12] MEDS ORDERED: Ampicillin/Sulbactam Sod 3 GM in NS 110 ML IVPB SCH (16:00)
--- NOTE | 2016-06-12 16:39 | General Progress Note ---
Assessment/Plan Problem List: (1) Fibroid ICD Codes: D25.9 - Leiomyoma of uterus, unspecified SNOMED: 55125800 (2) Syncope ICD Codes: R55 - Syncope and collapse SNOMED: 678003124 Qualifiers: Qualified Codes: R55 - Syncope and collapse (3) Anemia ICD Codes: D64.9 - Anemia, unspecified SNOMED: 095004319 Qualifiers: Qualified Codes: D64.9 - Anemia, unspecified (4) UTI (urinary tract infection) ICD Codes: N39.0 - Urinary tract infection, site not specified SNOMED: 39722353 (5) Menometrorrhagia ICD Codes: N92.1 - Excessive and frequent menstruation with irregular cycle SNOMED: 891431532 Status: stable, progressing, tolerating diet Assessment/Plan ot pt diet cbc bmp am Subjective Constitutional: Reports: weakness Allergies: Coded Allergies: NO KNOWN ALLERGIES (Unverified Allergy, Unknown, 05/12/15) All Systems: reviewed and negative except above Subjective calm in bed Objective Last 24 Hour Vital Signs Date Time Temp Pulse Resp B/P Pulse Ox O2 Delivery O2 Flow Rate FiO2 06/12/16 16:00 99.0 81 20 104/58 99 Room Air 06/12/16 11:22 98.6 84 18 109/55 97 Room Air 06/12/16 10:55 98.4 06/12/16 10:25 100.3 06/12/16 07:56 99.1 86 18 120/65 96 Room Air 06/12/16 07:35 89 06/12/16 04:00 84 06/12/16 04:00 99.0 91 19 140/81 98 Room Air 06/12/16 00:27 98.2 87 20 115/69 96 Room Air 06/12/16 00:00 92 06/11/16 20:00 100 06/11/16 20:00 103 20 130/72 98 Room Air 06/11/16 19:07 100.9 Intake and Output 06/11/16 06/12/16 19:00 07:00 Intake Total 55 ml 280 ml Balance 55 ml 280 ml IV Total 55 ml Blood Product 280 ml # Voids 2 Laboratory Tests 06/12/16 06:35: White Blood Count 10.6, Red Blood Count 3.84L, Hemoglobin 8.6L, Hematocrit 26.5L , Mean Corpuscular Volume 69L, Mean Corpuscular Hemoglobin 22.4L, Mean Corpuscular Hemoglobin Concent 32.5, Red Cell Distribution Width 22.2H, Platelet Count 306, Mean Platelet Volume 8.4, Neutrophils (%) (Auto) 60.9, Lymphocytes (%) (Auto) 13.6L, Monocytes (%) (Auto) 11.8H, Eosinophils (%) (Auto ) 12.3H, Basophils (%) (Auto) 1.3, Sodium Level 137, Potassium Level 3.8, Chloride Level 100, Carbon Dioxide Level 23, Anion Gap 14, Blood Urea Nitrogen 11, Creatinine 0.6, Estimat Glomerular Filtration Rate > 60, Glucose Level 110H , Calcium Level 8.1L, Total Bilirubin 0.3, Aspartate Amino Transf (AST/SGOT) 11 , Alanine Aminotransferase (ALT/SGPT) 11, Alkaline Phosphatase 61, Total Protein 6.6, Albumin 3.9, Globulin 2.7, Albumin/Globulin Ratio 1.4, Thyroid Stimulating Hormone (TSH) 2.020 Height (Feet): 5 Height (Inches): 1.00 Weight (Pounds): 139 General Appearance: lethargic EENT: normal ENT inspection Neck: normal alignment Cardiovascular: normal peripheral pulses, normal rate, regular rhythm Respiratory/Chest: chest wall non-tender, lungs clear, normal breath sounds Abdomen: normal bowel sounds, non tender, soft Extremities: normal inspection Edema: no edema noted Arm (L), no edema noted Arm (R), no edema noted Leg (L), no edema noted Leg (R), no edema noted Pedal (L), no edema noted Pedal (R), no edema noted Generalized Neurologic: responsive, motor weakness Skin: normal pigmentation, warm/dry SHAKEEL VENTURA Jun 12, 2016 16:39
[2016-06-12] MEDS ORDERED: Mylanta II UD 30ml ORAL PRN (19:00)
[2016-06-12] MEDS ORDERED: LORazepam Inj 2mg/ml 1ml IV PRN (19:00)
[2016-06-12] MEDS ORDERED: Morphine Sulfate 2mg/ml Inj IVP PRN (19:00)
--- NOTE | 2016-06-12 19:12 | Cardiology Progress Note ---
Assessment/Plan Assessment/Plan 1. Syncope, most likely due to acute blood loss due to vaginal bleed secondary to uterine fibroids. IV iron, hydration, corrective measures, no cardiac intervention required at this time. 2. Profound iron deficiency anemia due to blood loss. Objective Last 24 Hour Vital Signs Date Time Temp Pulse Resp B/P Pulse Ox O2 Delivery O2 Flow Rate FiO2 06/12/16 16:00 99.0 81 20 104/58 99 Room Air 06/12/16 16:00 89 06/12/16 11:22 98.6 84 18 109/55 97 Room Air 06/12/16 10:55 98.4 06/12/16 10:25 100.3 06/12/16 07:56 99.1 86 18 120/65 96 Room Air 06/12/16 07:35 89 06/12/16 04:00 84 06/12/16 04:00 99.0 91 19 140/81 98 Room Air 06/12/16 00:27 98.2 87 20 115/69 96 Room Air 06/12/16 00:00 92 06/11/16 20:00 100 06/11/16 20:00 103 20 130/72 98 Room Air Intake and Output 06/11/16 06/12/16 19:00 07:00 Intake Total 55 ml 280 ml Balance 55 ml 280 ml IV Total 55 ml Blood Product 280 ml # Voids 2 Laboratory Tests Test 06/12/16 06:35 White Blood Count 10.6 K/UL (4.8-10.8) Red Blood Count 3.84 M/UL (4.20-5.40) L Hemoglobin 8.6 G/DL (12.0-16.0) L Hematocrit 26.5 % (37.0-47.0) L Mean Corpuscular Volume 69 FL (80-99) L Mean Corpuscular Hemoglobin 22.4 PG (27.0-31.0) L Mean Corpuscular Hemoglobin Concent 32.5 G/DL (32.0-36.0) Red Cell Distribution Width 22.2 % (11.6-14.8) H Platelet Count 306 K/UL (150-450) Mean Platelet Volume 8.4 FL (6.5-10.1) Neutrophils (%) (Auto) 60.9 % (45.0-75.0) Lymphocytes (%) (Auto) 13.6 % (20.0-45.0) L Monocytes (%) (Auto) 11.8 % (1.0-10.0) H Eosinophils (%) (Auto) 12.3 % (0.0-3.0) H Basophils (%) (Auto) 1.3 % (0.0-2.0) Sodium Level 137 mEQ/L (135-145) Potassium Level 3.8 mEQ/L (3.4-4.9) Chloride Level 100 mEQ/L (98-107) Carbon Dioxide Level 23 mEQ/L (20-30) Anion Gap 14 (5-15) Blood Urea Nitrogen 11 mg/dL (7-23) Creatinine 0.6 mg/dL (0.5-0.9) Estimat Glomerular Filtration Rate > 60 mL/min (>60) Glucose Level 110 mg/dL (74-106) H Calcium Level 8.1 mg/dL (8.6-10.2) L Total Bilirubin 0.3 mg/dL (0.0-1.2) Aspartate Amino Transf (AST/SGOT) 11 U/L (5-40) Alanine Aminotransferase (ALT/SGPT) 11 U/L (3-33) Alkaline Phosphatase 61 U/L (35-104) Total Protein 6.6 g/dL (6.6-8.7) Albumin 3.9 g/dL (3.5-5.2) Globulin 2.7 g/dL Albumin/Globulin Ratio 1.4 (1.0-2.7) Thyroid Stimulating Hormone (TSH) 2.020 uIU/mL (0.300-4.500) Objective HEENT: Atraumatic and normocephalic. Anicteric. Pupils are equal, round, and reactive to light and accommodation. Extraocular muscles are intact. Conjunctival pallor. NECK: JVP less than 5 cm. No carotid bruit. Carotid upstroke is 2+ bilaterally. CARDIOVASCULAR: Normal S1 and S2. Regular rate and rhythm. Tachycardic. PMI is at fourth intercostal space in the midclavicular line. LUNGS: Clear to auscultation bilaterally. ABDOMEN: Soft, nontender, and nondistended. No hepatosplenomegaly. Positive bowel sounds. EXTREMITIES: No evidence of edema, clubbing, or cyanosis. ELVIS BROOKE Jun 12, 2016 19:12
--- NOTE | 2016-06-12 19:43 | Infectious Diseases Prog Note ---
Assessment/Plan Problems: (1) UTI (urinary tract infection) Assessment & Plan: await urine culture , will switch ceftriaxon to unasyn since she spiked fever to cover for possible endometritis (2) Anemia Assessment & Plan: due to fibroid bleeding , recommend [employer] consult, and monitor H&H, transfuse as needed (3) Syncope Assessment & Plan: suspect due to blood loss, continue tele monitor, monitor H& H transfuse as needed, consult neurology (4) Menometrorrhagia Assessment & Plan: due to fibroids bleeding, consult [employer], and follow up as an outpatient Subjective Constitutional: Reports: fatigue Genitourinary: Reports: vaginal bleed/discharge Allergies: Coded Allergies: NO KNOWN ALLERGIES (Unverified Allergy, Unknown, 05/12/15) All Systems: reviewed and negative except above Subjective she feels better today, less bleeding, no abdominal pain, no chills Objective Vital Signs Last 24 Hour Vital Signs Date Time Temp Pulse Resp B/P Pulse Ox O2 Delivery O2 Flow Rate FiO2 06/12/16 16:00 99.0 81 20 104/58 99 Room Air 06/12/16 16:00 89 06/12/16 11:22 98.6 84 18 109/55 97 Room Air 06/12/16 10:55 98.4 06/12/16 10:25 100.3 06/12/16 07:56 99.1 86 18 120/65 96 Room Air 06/12/16 07:35 89 06/12/16 04:00 84 06/12/16 04:00 99.0 91 19 140/81 98 Room Air 06/12/16 00:27 98.2 87 20 115/69 96 Room Air 06/12/16 00:00 92 06/11/16 20:00 100 06/11/16 20:00 103 20 130/72 98 Room Air Height (Feet): 5 Height (Inches): 1.00 Weight (Pounds): 139 General Appearance: WD/WN, no acute distress HEENT: normocephalic, atraumatic, anicteric, mucous membranes moist, PERRL Respiratory/Chest: chest wall non-tender, lungs clear, normal breath sounds, no respiratory distress, no accessory muscle use Cardiovascular: normal peripheral pulses, normal rate, regular rhythm, no gallop/murmur Abdomen: normal bowel sounds, soft, non tender, no organomegaly, non distended , no mass, no scars Extremities: no cyanosis, no clubbing Skin: no rash, no lesions Laboratory Tests Test 06/12/16 06:35 White Blood Count 10.6 K/UL (4.8-10.8) Red Blood Count 3.84 M/UL (4.20-5.40) L Hemoglobin 8.6 G/DL (12.0-16.0) L Hematocrit 26.5 % (37.0-47.0) L Mean Corpuscular Volume 69 FL (80-99) L Mean Corpuscular Hemoglobin 22.4 PG (27.0-31.0) L Mean Corpuscular Hemoglobin Concent 32.5 G/DL (32.0-36.0) Red Cell Distribution Width 22.2 % (11.6-14.8) H Platelet Count 306 K/UL (150-450) Mean Platelet Volume 8.4 FL (6.5-10.1) Neutrophils (%) (Auto) 60.9 % (45.0-75.0) Lymphocytes (%) (Auto) 13.6 % (20.0-45.0) L Monocytes (%) (Auto) 11.8 % (1.0-10.0) H Eosinophils (%) (Auto) 12.3 % (0.0-3.0) H Basophils (%) (Auto) 1.3 % (0.0-2.0) Sodium Level 137 mEQ/L (135-145) Potassium Level 3.8 mEQ/L (3.4-4.9) Chloride Level 100 mEQ/L (98-107) Carbon Dioxide Level 23 mEQ/L (20-30) Anion Gap 14 (5-15) Blood Urea Nitrogen 11 mg/dL (7-23) Creatinine 0.6 mg/dL (0.5-0.9) Estimat Glomerular Filtration Rate > 60 mL/min (>60) Glucose Level 110 mg/dL (74-106) H Calcium Level 8.1 mg/dL (8.6-10.2) L Total Bilirubin 0.3 mg/dL (0.0-1.2) Aspartate Amino Transf (AST/SGOT) 11 U/L (5-40) Alanine Aminotransferase (ALT/SGPT) 11 U/L (3-33) Alkaline Phosphatase 61 U/L (35-104) Total Protein 6.6 g/dL (6.6-8.7) Albumin 3.9 g/dL (3.5-5.2) Globulin 2.7 g/dL Albumin/Globulin Ratio 1.4 (1.0-2.7) Thyroid Stimulating Hormone (TSH) 2.020 uIU/mL (0.300-4.500) Current Medications Medications (Trade) Dose Ordered Sig/Kaylee Route PRN Reason Start Time Stop Time Status Last Admin Dose Admin Acetaminophen (Tylenol) 650 mg Q4H PRN ORAL T>100.5 06/12/16 19:00 07/12/16 18:59 Al Hydroxide/Mg Hydroxide (Mylanta II) 30 ml Q6H PRN ORAL dyspepsia 06/12/16 19:00 07/12/16 18:59 Ampicillin Sodium/ Sulbactam Sodium 3 gm/Sodium Chloride 110 ml @ 220 mls/hr Q6H IVPB 06/12/16 22:00 06/19/16 21:59 Dextrose (Dextrose 50%) STAT PRN IV Hypoglycemia 06/12/16 19:00 07/12/16 18:59 Iron Sucrose/ Sodium Chloride (Venofer/Sodium Chloride) 60 ml @ 240 mls/hr BEDTIME IVPB 06/12/16 21:00 06/16/16 21:01 Lorazepam (Ativan 2mg/ml 1ml) 0.5 mg Q4H PRN IV For Anxiety 06/12/16 19:00 06/19/16 18:59 Morphine Sulfate (Morphine Sulfate) 1 mg Q4H PRN IVP PAIN 4-10 06/12/16 19:00 06/19/16 18:59 Ondansetron HCl (Zofran) 4 mg Q6H PRN IVP Nausea & Vomiting 06/12/16 19:00 07/12/16 18:59 Polyethylene Glycol (Miralax) 17 gm HSPRN PRN ORAL Constipation 06/13/16 21:00 07/13/16 20:59 Zolpidem Tartrate (Ambien) 5 mg HSPRN PRN ORAL Insomnia 06/12/16 21:00 07/12/16 20:59 Teo Wade M.D. Jun 12, 2016 19:43
[2016-06-12 20:00] VITALS: BP 116/65
--- NOTE | 2016-06-12 20:23 | Consultation ---
Consult Note Consult Note Gynecology Assessment/Plan CHIEF COMPLAINT: Syncope, weakness, fibroid bleed, and anemia. BRIEF HISTORY: This is a 51-year-old female with a history of fibroids recurrent bleeding, apparently has some bleeding at home with dizzy, lightheaded, possible syncope, who came to [facility] and admitted to telemetry. Currently, stable;e weak in bed. No compliance issues. PAST MEDICAL HISTORY: Bleeding fibroids, syncope and anemia. PAST SURGICAL HISTORY: None. MEDICATIONS: Ambien, Tylenol, morphine, MiraLAX, Zofran, Ativan, Mylanta, and dextrose. ALLERGIES: Denies. SOCIAL HISTORY: No smoking. No alcohol. No intravenous drug abuse. FAMILY HISTORY: Noncontributory. REVIEW OF SYSTEMS: No chest pain/short of breath. No nausea, vomiting or diarrhea. PHYSICAL EXAMINATION: GENERAL: Calm, alert and oriented x3, slight weak. VITAL SIGNS: Temperature 98 degrees, pulse 89, respirations 14, and blood pressure 100/64. CARDIOVASCULAR: No murmur. LUNGS: Poor exchange. ABDOMEN: Positive bowel sounds. Nontender and nondistended. EXTREMITIES: No cyanosis, clubbing or edema. NEUROLOGIC: The patient moves all extremities, but slightly weak. LABORATORY AND DIAGNOSTIC DATA: Hemoglobin of 6.7, otherwise CBC is normal. BMP show glucose 122, otherwise normal. Lipase 23. INR 1.0. Urinalysis, 5+ blood and 2+ leukocyte esterase. Ultrasound :There is a mass in the uterus measuring 4.8 x 5.7 cm increased from 3 cm on scan on 04/2015 A/P a pleasant 51 year old pt , heavy menstrual bleeding, sever anemia, Fibroids : 1) U/S multiple fibroids,largest 4.8 x 5.7 cm increased from 3 cm on scan on 04/2015 3)Recommend out pt endometrial biopsy to rule out any precancer cells, treatment for the fibroid , with Lupron injection, or more definite like hysterectomy would be a better option 2)Recommend out pt follow up, DC pt , only after been seen by social consult to connect her to one of the [facility] clinic to arrange her endometrial biopsy and hysterectomy 3) Anemia S/P transfusion, recommend ferrous sulfate 325 mg TID until surgery is done , pt counseled if heavy period again or dizzines, or palpitation to come to the ED , currently pt is not actively bleeding 4) pt needs a pap smear also and mammogram as out pt 5) UTI treated Thank you for the consult VON Vital MD Jun 12, 2016 20:23
[2016-06-12] MEDS ORDERED: Zolpidem 5mg tab ORAL PRN (21:00)
[2016-06-12] MEDS ORDERED: Iron Sucrose 100 MG in NS 55 ML IVPB SCH (21:00)
[2016-06-12] MEDS: Iron Sucrose 100 MG in NS 55 ML IVPB SCH (21:44)
[2016-06-12] MEDS: Ampicillin/Sulbactam Sod 3 GM in NS 110 ML IVPB SCH (22:27)
[2016-06-13] MEDS: Ampicillin/Sulbactam Sod 3 GM in NS 110 ML IVPB SCH ×4 (02:58→21:43)
[2016-06-13 04:00] VITALS: BP 110/65
[2016-06-13 05:37] VITALS: BP 110/65
[2016-06-13 06:53] LABS: BASOPHILS % (AUTO) 1.6 % (0.0-2.0); EOSINOPHILS % (AUTO) 15.4 % (0.0-3.0); LYMPHOCYTES % (AUTO) 20.1 % (20.0-45.0); MEAN CORPUSCULAR HEMOGLOBIN 22.5 PG (27.0-31.0); MEAN CORPUSCULAR HGB CONC 31.7 G/DL (32.0-36.0); MEAN CORPUSCULAR VOLUME 71 FL (80-99); MEAN PLATELET VOLUME 8.1 FL (6.5-10.1); MONOCYTES % (AUTO) 12.5 % (1.0-10.0); NEUTROPHILS % (AUTO) 50.4 % (45.0-75.0); PLATELET COUNT 313 K/UL (150-450); RED BLOOD COUNT 3.94 M/UL (4.20-5.40); RED CELL DISTRIBUTION WIDTH 22.4 % (11.6-14.8); WHITE BLOOD COUNT 9.7 K/UL (4.8-10.8)
[2016-06-13 07:11] LABS: ANION GAP 13 (5-15); CALCIUM 7.9 mg/dL (8.6-10.2); CARBON DIOXIDE 24 mEQ/L (20-30); CHLORIDE 102 mEQ/L (98-107); CREATININE 0.7 mg/dL (0.5-0.9); GLOMERULAR FILTRATION RATE > 60 mL/min (>60); HEMOLYSIS 3; POTASSIUM 3.8 mEQ/L (3.4-4.9); SODIUM 139 mEQ/L (135-145)
[2016-06-13 08:24] VITALS: BP 112/72
--- NOTE | 2016-06-13 09:01 | General Progress Note ---
Assessment/Plan Problem List: (1) Fibroid ICD Codes: D25.9 - Leiomyoma of uterus, unspecified SNOMED: 17463842 (2) Syncope ICD Codes: R55 - Syncope and collapse SNOMED: 736442294 Qualifiers: Qualified Codes: R55 - Syncope and collapse (3) Anemia ICD Codes: D64.9 - Anemia, unspecified SNOMED: 528321657 Qualifiers: Qualified Codes: D64.9 - Anemia, unspecified (4) UTI (urinary tract infection) ICD Codes: N39.0 - Urinary tract infection, site not specified SNOMED: 00569631 (5) Menometrorrhagia ICD Codes: N92.1 - Excessive and frequent menstruation with irregular cycle SNOMED: 612887667 Status: stable, progressing, tolerating diet Assessment/Plan ot pt diet cbc bmp am dc plan Subjective Constitutional: Reports: weakness Allergies: Coded Allergies: NO KNOWN ALLERGIES (Unverified Allergy, Unknown, 05/12/15) All Systems: reviewed and negative except above Subjective calm in bed Objective Last 24 Hour Vital Signs Date Time Temp Pulse Resp B/P Pulse Ox O2 Delivery O2 Flow Rate FiO2 06/13/16 08:24 98.1 87 18 112/72 98 Room Air 06/13/16 05:37 98.1 65 18 110/65 96 Room Air 06/13/16 04:00 98.1 65 18 110/65 96 Room Air 06/12/16 20:00 98.1 88 20 116/65 97 Room Air 06/12/16 16:00 99.0 81 20 104/58 99 Room Air 06/12/16 16:00 89 06/12/16 11:22 98.6 84 18 109/55 97 Room Air 06/12/16 10:55 98.4 06/12/16 10:25 100.3 Intake and Output 06/12/16 06/13/16 19:00 07:00 Intake Total 710 ml 1070 ml Output Total 200 ml Balance 710 ml 870 ml Intake Oral 600 ml 900 ml IV Total 110 ml 170 ml Output Urine Total 200 ml # Voids 2 1 Laboratory Tests 06/13/16 05:20: White Blood Count 9.7, Red Blood Count 3.94L, Hemoglobin 8.9L, Hematocrit 27.9L , Mean Corpuscular Volume 71L, Mean Corpuscular Hemoglobin 22.5L, Mean Corpuscular Hemoglobin Concent 31.7L, Red Cell Distribution Width 22.4H, Platelet Count 313, Mean Platelet Volume 8.1, Neutrophils (%) (Auto) 50.4, Lymphocytes (%) (Auto) 20.1, Monocytes (%) (Auto) 12.5H, Eosinophils (%) (Auto) 15.4H, Basophils (%) (Auto) 1.6, Sodium Level 139, Potassium Level 3.8, Chloride Level 102, Carbon Dioxide Level 24, Anion Gap 13, Blood Urea Nitrogen 11, Creatinine 0.7, Estimat Glomerular Filtration Rate > 60, Glucose Level 94, Calcium Level 7.9L Height (Feet): 5 Height (Inches): 1.00 Weight (Pounds): 139 General Appearance: lethargic EENT: normal ENT inspection Neck: normal alignment Cardiovascular: normal peripheral pulses, normal rate, regular rhythm Respiratory/Chest: chest wall non-tender, lungs clear, normal breath sounds Abdomen: normal bowel sounds, non tender, soft Extremities: normal inspection Edema: no edema noted Arm (L), no edema noted Arm (R), no edema noted Leg (L), no edema noted Leg (R), no edema noted Pedal (L), no edema noted Pedal (R), no edema noted Generalized Neurologic: responsive, motor weakness Skin: normal pigmentation, warm/dry SHAKEEL VENTURA Jun 13, 2016 09:01
--- NOTE | 2016-06-13 11:25 | General Progress Note ---
Assessment/Plan Assessment/Plan ASSESSMENT: 1. Anemia secondary iron deficiency to likely menstrual bleeding. Iron panel shows iron deficiency similar to prior ones, continue IV and PO iron as outpatient 2. Anemia secondary to heavy menstrual bleeding 3. Decreased hemoglobin and hematocrit, rule out gastrointestinal bleed. 4. UTI hx, infection 5. Dehydration. 6. Syncope 7. Menorrhagia RECOMMENDATIONS: 1. Monitor counts. 2. Transfuse if needed. Hgb goal >7 3. Continue iv iron given ferritin <10 4. Continue po iron 5. Gynecology eval as outpatient 6. Supportive care. 7. Nutritional support. 8. Discussed with staff. Thank you, Rigo Osorio MD Subjective Constitutional: Reports: no symptoms HEENT: Reports: no symptoms Cardiovascular: Reports: no symptoms Respiratory: Reports: no symptoms Gastrointestinal/Abdominal: Reports: poor appetite Genitourinary: Reports: no symptoms Neurologic/Psychiatric: Reports: no symptoms Endocrine: Reports: no symptoms Hematologic/Lymphatic: Reports: anemia Allergies: Coded Allergies: NO KNOWN ALLERGIES (Unverified Allergy, Unknown, 05/12/15) Subjective asleep, calm, cooperative Objective Last 24 Hour Vital Signs Date Time Temp Pulse Resp B/P Pulse Ox O2 Delivery O2 Flow Rate FiO2 06/13/16 08:24 98.1 87 18 112/72 98 Room Air 06/13/16 05:37 98.1 65 18 110/65 96 Room Air 06/13/16 04:00 98.1 65 18 110/65 96 Room Air 06/12/16 20:00 98.1 88 20 116/65 97 Room Air 06/12/16 16:00 99.0 81 20 104/58 99 Room Air 06/12/16 16:00 89 Intake and Output 06/12/16 06/13/16 19:00 07:00 Intake Total 710 ml 1070 ml Output Total 200 ml Balance 710 ml 870 ml Intake Oral 600 ml 900 ml IV Total 110 ml 170 ml Output Urine Total 200 ml # Voids 2 1 Laboratory Tests 06/13/16 05:20: White Blood Count 9.7, Red Blood Count 3.94L, Hemoglobin 8.9L, Hematocrit 27.9L , Mean Corpuscular Volume 71L, Mean Corpuscular Hemoglobin 22.5L, Mean Corpuscular Hemoglobin Concent 31.7L, Red Cell Distribution Width 22.4H, Platelet Count 313, Mean Platelet Volume 8.1, Neutrophils (%) (Auto) 50.4, Lymphocytes (%) (Auto) 20.1, Monocytes (%) (Auto) 12.5H, Eosinophils (%) (Auto) 15.4H, Basophils (%) (Auto) 1.6, Sodium Level 139, Potassium Level 3.8, Chloride Level 102, Carbon Dioxide Level 24, Anion Gap 13, Blood Urea Nitrogen 11, Creatinine 0.7, Estimat Glomerular Filtration Rate > 60, Glucose Level 94, Calcium Level 7.9L Height (Feet): 5 Height (Inches): 1.00 Weight (Pounds): 139 General Appearance: no apparent distress EENT: TMs normal Neck: supple Cardiovascular: regular rhythm Respiratory/Chest: lungs clear Abdomen: non tender Extremities: non-tender Edema: 1+ Leg (L), 1+ Leg (R) Edema: mild edema Neurologic: no motor/sensory deficits Skin: warm/dry RIGO OSORIO Jun 13, 2016 11:25
[2016-06-13 11:53] VITALS: BP 114/70
[2016-06-13] MEDS ORDERED: Tubing IV Secondary IV ONE (14:18)
[2016-06-13] MEDS ORDERED: NS 275ml ONE (14:18)
[2016-06-13 16:00] VITALS: BP 115/68
--- NOTE | 2016-06-13 17:02 | Infectious Diseases Prog Note ---
Assessment/Plan Problems: (1) UTI (urinary tract infection) Assessment & Plan: await urine culture , continue Unasyn empirically to cover for possible endometritis (2) Anemia Assessment & Plan: due to fibroid bleeding , evaluated by [facility] , and monitor H&H, transfuse as needed (3) Syncope Assessment & Plan: suspect due to blood loss, continue tele monitor, monitor H& H transfuse as needed, consult neurology (4) Menometrorrhagia Assessment & Plan: due to fibroids bleeding, follow up with [facility]. Subjective Constitutional: Reports: fatigue Genitourinary: Reports: vaginal bleed/discharge Allergies: Coded Allergies: NO KNOWN ALLERGIES (Unverified Allergy, Unknown, 05/12/15) All Systems: reviewed and negative except above Subjective she feels better today, less bleeding, no abdominal pain, no chills Objective Vital Signs Last 24 Hour Vital Signs Date Time Temp Pulse Resp B/P Pulse Ox O2 Delivery O2 Flow Rate FiO2 06/13/16 11:53 97.7 75 18 114/70 98 Room Air 06/13/16 08:24 98.1 87 18 112/72 98 Room Air 06/13/16 05:37 98.1 65 18 110/65 96 Room Air 06/13/16 04:00 98.1 65 18 110/65 96 Room Air 06/12/16 20:00 98.1 88 20 116/65 97 Room Air Height (Feet): 5 Height (Inches): 1.00 Weight (Pounds): 139 General Appearance: WD/WN, no acute distress HEENT: normocephalic, atraumatic, anicteric, mucous membranes moist Respiratory/Chest: chest wall non-tender, lungs clear, normal breath sounds, no respiratory distress, no accessory muscle use Cardiovascular: normal peripheral pulses, normal rate, regular rhythm, no gallop/murmur, no JVD Abdomen: normal bowel sounds, soft, non tender, no organomegaly, non distended , no mass, no scars Extremities: no cyanosis, no clubbing Microbiology Date/Time Source Procedure Growth Status 06/12/16 01:00 Indwelling Cath Urine Culture - Preliminary NO GROWTH AFTER 24 HOURS Resulted Laboratory Tests Test 06/13/16 05:20 White Blood Count 9.7 K/UL (4.8-10.8) Red Blood Count 3.94 M/UL (4.20-5.40) L Hemoglobin 8.9 G/DL (12.0-16.0) L Hematocrit 27.9 % (37.0-47.0) L Mean Corpuscular Volume 71 FL (80-99) L Mean Corpuscular Hemoglobin 22.5 PG (27.0-31.0) L Mean Corpuscular Hemoglobin Concent 31.7 G/DL (32.0-36.0) L Red Cell Distribution Width 22.4 % (11.6-14.8) H Platelet Count 313 K/UL (150-450) Mean Platelet Volume 8.1 FL (6.5-10.1) Neutrophils (%) (Auto) 50.4 % (45.0-75.0) Lymphocytes (%) (Auto) 20.1 % (20.0-45.0) Monocytes (%) (Auto) 12.5 % (1.0-10.0) H Eosinophils (%) (Auto) 15.4 % (0.0-3.0) H Basophils (%) (Auto) 1.6 % (0.0-2.0) Sodium Level 139 mEQ/L (135-145) Potassium Level 3.8 mEQ/L (3.4-4.9) Chloride Level 102 mEQ/L (98-107) Carbon Dioxide Level 24 mEQ/L (20-30) Anion Gap 13 (5-15) Blood Urea Nitrogen 11 mg/dL (7-23) Creatinine 0.7 mg/dL (0.5-0.9) Estimat Glomerular Filtration Rate > 60 mL/min (>60) Glucose Level 94 mg/dL (74-106) Calcium Level 7.9 mg/dL (8.6-10.2) L Current Medications Medications (Trade) Dose Ordered Sig/Kaylee Route PRN Reason Start Time Stop Time Status Last Admin Dose Admin Acetaminophen (Tylenol) 650 mg Q4H PRN ORAL T>100.5 06/12/16 19:00 07/12/16 18:59 Al Hydroxide/Mg Hydroxide (Mylanta II) 30 ml Q6H PRN ORAL dyspepsia 06/12/16 19:00 07/12/16 18:59 Ampicillin Sodium/ Sulbactam Sodium 3 gm/Sodium Chloride 110 ml @ 220 mls/hr Q6H IVPB 06/12/16 22:00 06/19/16 21:59 06/13/16 16:10 Dextrose (Dextrose 50%) STAT PRN IV Hypoglycemia 06/12/16 19:00 07/12/16 18:59 Ferrous Sulfate (Feosol) 325 mg THREE TIMES A DAY ORAL 06/16/16 09:00 07/16/16 08:59 Iron Sucrose/ Sodium Chloride (Venofer/Sodium Chloride) 60 ml @ 240 mls/hr BEDTIME IVPB 06/12/16 21:00 06/16/16 21:01 06/12/16 21:44 Lorazepam (Ativan 2mg/ml 1ml) 0.5 mg Q4H PRN IV For Anxiety 06/12/16 19:00 06/19/16 18:59 Morphine Sulfate (Morphine Sulfate) 1 mg Q4H PRN IVP PAIN 4-10 06/12/16 19:00 06/19/16 18:59 Ondansetron HCl (Zofran) 4 mg Q6H PRN IVP Nausea & Vomiting 06/12/16 19:00 07/12/16 18:59 Polyethylene Glycol (Miralax) 17 gm HSPRN PRN ORAL Constipation 06/13/16 21:00 07/13/16 20:59 Zolpidem Tartrate (Ambien) 5 mg HSPRN PRN ORAL Insomnia 06/12/16 21:00 07/12/16 20:59 Teo Wade M.D. Jun 13, 2016 17:02
[2016-06-13 20:00] VITALS: BP 110/77
[2016-06-13] MEDS ORDERED: Miralax 17gm pkt ORAL PRN (21:00)
[2016-06-13] MEDS: Iron Sucrose 100 MG in NS 55 ML IVPB SCH (21:12)
[2016-06-14] VITALS: BP 121/72
[2016-06-14 04:00] VITALS: BP 131/60
[2016-06-14] MEDS: Ampicillin/Sulbactam Sod 3 GM in NS 110 ML IVPB SCH ×2 (04:11→10:39)
[2016-06-14 07:13] LABS: BASOPHILS % (AUTO) 1.3 % (0.0-2.0); EOSINOPHILS % (AUTO) 17.3 % (0.0-3.0); LYMPHOCYTES % (AUTO) 24.3 % (20.0-45.0); MEAN CORPUSCULAR HEMOGLOBIN 22.4 PG (27.0-31.0); MEAN CORPUSCULAR HGB CONC 31.8 G/DL (32.0-36.0); MEAN CORPUSCULAR VOLUME 70 FL (80-99); MEAN PLATELET VOLUME 8.6 FL (6.5-10.1); MONOCYTES % (AUTO) 8.9 % (1.0-10.0); NEUTROPHILS % (AUTO) 48.3 % (45.0-75.0); PLATELET COUNT 313 K/UL (150-450); RED BLOOD COUNT 3.83 M/UL (4.20-5.40); RED CELL DISTRIBUTION WIDTH 22.4 % (11.6-14.8); WHITE BLOOD COUNT 9.1 K/UL (4.8-10.8)
[2016-06-14 07:51] LABS: ANION GAP 15 (5-15); CALCIUM 8.2 mg/dL (8.6-10.2); CARBON DIOXIDE 23 mEQ/L (20-30); CHLORIDE 102 mEQ/L (98-107); CREATININE 0.6 mg/dL (0.5-0.9); GLOMERULAR FILTRATION RATE > 60 mL/min (>60); HEMOLYSIS 1; SODIUM 140 mEQ/L (135-145)
[2016-06-14 08:00] VITALS: BP 118/74
--- NOTE | 2016-06-14 09:04 | General Progress Note ---
Assessment/Plan Problem List: (1) Fibroid ICD Codes: D25.9 - Leiomyoma of uterus, unspecified SNOMED: 38437239 (2) Syncope ICD Codes: R55 - Syncope and collapse SNOMED: 489317151 Qualifiers: Qualified Codes: R55 - Syncope and collapse (3) Anemia ICD Codes: D64.9 - Anemia, unspecified SNOMED: 814708018 Qualifiers: Qualified Codes: D64.9 - Anemia, unspecified (4) UTI (urinary tract infection) ICD Codes: N39.0 - Urinary tract infection, site not specified SNOMED: 19070943 (5) Menometrorrhagia ICD Codes: N92.1 - Excessive and frequent menstruation with irregular cycle SNOMED: 202929378 Status: stable, progressing, tolerating diet Assessment/Plan ot pt diet cbc bmp am dc plan Subjective Constitutional: Reports: weakness Allergies: Coded Allergies: NO KNOWN ALLERGIES (Unverified Allergy, Unknown, 05/12/15) All Systems: reviewed and negative except above Subjective calm in bed Objective Last 24 Hour Vital Signs Date Time Temp Pulse Resp B/P Pulse Ox O2 Delivery O2 Flow Rate FiO2 06/14/16 08:00 97.7 79 20 118/74 99 Room Air 06/14/16 04:00 97.7 66 20 131/60 100 Room Air 06/14/16 00:00 98.2 79 20 121/72 99 Room Air 06/13/16 20:00 97.9 85 18 110/77 99 Room Air 06/13/16 16:00 98.2 77 18 115/68 98 Room Air 06/13/16 11:53 97.7 75 18 114/70 98 Room Air Intake and Output 06/13/16 06/14/16 19:00 07:00 Intake Total 590 ml 380 ml Balance 590 ml 380 ml Intake Oral 480 ml 100 ml IV Total 110 ml 280 ml # Voids 3 2 Laboratory Tests 06/14/16 05:55: White Blood Count 9.1, Red Blood Count 3.83L, Hemoglobin 8.6L, Hematocrit 27.0L , Mean Corpuscular Volume 70L, Mean Corpuscular Hemoglobin 22.4L, Mean Corpuscular Hemoglobin Concent 31.8L, Red Cell Distribution Width 22.4H, Platelet Count 313, Mean Platelet Volume 8.6, Neutrophils (%) (Auto) 48.3, Lymphocytes (%) (Auto) 24.3, Monocytes (%) (Auto) 8.9, Eosinophils (%) (Auto) 17.3H, Basophils (%) (Auto) 1.3, Sodium Level 140, Potassium Level 4.0, Chloride Level 102, Carbon Dioxide Level 23, Anion Gap 15, Blood Urea Nitrogen 10, Creatinine 0.6, Estimat Glomerular Filtration Rate > 60, Glucose Level 98, Calcium Level 8.2L Height (Feet): 5 Height (Inches): 1.00 Weight (Pounds): 139 General Appearance: lethargic EENT: PERRL/EOMI Neck: normal alignment Cardiovascular: normal peripheral pulses, normal rate, regular rhythm Respiratory/Chest: chest wall non-tender, lungs clear, normal breath sounds Abdomen: normal bowel sounds, non tender, soft Extremities: normal inspection Edema: no edema noted Arm (L), no edema noted Arm (R), no edema noted Leg (L), no edema noted Leg (R), no edema noted Pedal (L), no edema noted Pedal (R), no edema noted Generalized Neurologic: responsive, motor weakness Skin: normal pigmentation, warm/dry SHAKEEL VENTURA Jun 14, 2016 09:04
--- NOTE | 2016-06-14 11:58 | General Progress Note ---
Assessment/Plan Assessment/Plan ASSESSMENT: 1. Anemia secondary iron deficiency to likely menstrual bleeding. Iron panel shows iron deficiency similar to prior ones, continue IV and PO iron as outpatient 2. Anemia secondary to heavy menstrual bleeding 3. Decreased hemoglobin and hematocrit, rule out gastrointestinal bleed. 4. UTI hx, infection 5. Dehydration. 6. Syncope 7. Menorrhagia RECOMMENDATIONS: 1. Monitor counts. 2. Transfuse if needed. Hgb goal >7 3. Continue iv iron given ferritin <10 4. Continue po iron 5. Gynecology eval as outpatient 6. Supportive care. 7. Nutritional support. 8. staff. Thank you, Rigo Osorio MD Subjective Constitutional: Reports: no symptoms HEENT: Reports: no symptoms Cardiovascular: Reports: no symptoms Respiratory: Reports: no symptoms Gastrointestinal/Abdominal: Reports: poor appetite Genitourinary: Reports: no symptoms Neurologic/Psychiatric: Reports: no symptoms Endocrine: Reports: no symptoms Hematologic/Lymphatic: Reports: anemia Allergies: Coded Allergies: NO KNOWN ALLERGIES (Unverified Allergy, Unknown, 05/12/15) Subjective asleep, calm, cooperative Objective Last 24 Hour Vital Signs Date Time Temp Pulse Resp B/P Pulse Ox O2 Delivery O2 Flow Rate FiO2 06/14/16 08:00 97.7 79 20 118/74 99 Room Air 06/14/16 04:00 97.7 66 20 131/60 100 Room Air 06/14/16 00:00 98.2 79 20 121/72 99 Room Air 06/13/16 20:00 97.9 85 18 110/77 99 Room Air 06/13/16 16:00 98.2 77 18 115/68 98 Room Air Intake and Output 06/13/16 06/14/16 19:00 07:00 Intake Total 590 ml 380 ml Balance 590 ml 380 ml Intake Oral 480 ml 100 ml IV Total 110 ml 280 ml # Voids 3 2 Laboratory Tests 06/14/16 05:55: White Blood Count 9.1, Red Blood Count 3.83L, Hemoglobin 8.6L, Hematocrit 27.0L , Mean Corpuscular Volume 70L, Mean Corpuscular Hemoglobin 22.4L, Mean Corpuscular Hemoglobin Concent 31.8L, Red Cell Distribution Width 22.4H, Platelet Count 313, Mean Platelet Volume 8.6, Neutrophils (%) (Auto) 48.3, Lymphocytes (%) (Auto) 24.3, Monocytes (%) (Auto) 8.9, Eosinophils (%) (Auto) 17.3H, Basophils (%) (Auto) 1.3, Sodium Level 140, Potassium Level 4.0, Chloride Level 102, Carbon Dioxide Level 23, Anion Gap 15, Blood Urea Nitrogen 10, Creatinine 0.6, Estimat Glomerular Filtration Rate > 60, Glucose Level 98, Calcium Level 8.2L Height (Feet): 5 Height (Inches): 1.00 Weight (Pounds): 139 General Appearance: alert EENT: TMs normal Neck: supple Cardiovascular: regular rhythm Respiratory/Chest: lungs clear Abdomen: non tender Extremities: normal inspection Edema: no edema noted Leg (L), no edema noted Leg (R) Edema: mild edema Neurologic: alert Skin: warm/dry RIGO OSORIO Jun 14, 2016 11:58
[2016-06-14 12:00] VITALS: BP 113/75
[2016-06-14 16:00] VITALS: BP 117/99
[2016-06-14] MEDS ORDERED: Ampicillin/Sulbactam Sod 3 GM in NS 55 ML IVPB SCH (18:00)
[2016-06-14] MEDS ORDERED: NS 275ml ONE (18:44)
[2016-06-14] MEDS ORDERED: Tubing IV Secondary IV ONE (18:44)
--- NOTE | 2016-06-16 11:21 | Discharge Summary ---
Discharge Summary Hospital Course Date of Admission Jun 11, 2016 at 08:48 Date of Discharge Jun 14, 2016 at 18:45 Admitting Diagnosis SYNCOPE,ANEMIA MARGOT Medel is a 51 year old female who was admitted on Jun 11, 2016 at 08:48 for Syncope, Anemia Hospital Course dc summary dictated #[id number] Discharge Medications New Medications: Ferrous Sulfate* (Ferrous Sulfate*) 325 Mg Tablet 325 MG ORAL THREE TIMES A DAY, #90 TAB 0 Refills Continued Medications: Folic Acid (Folic Acid) 0.4 Mg Tablet 1 MG ORAL DAILY, #30 TAB Multivitamin (Multi Vitamin Daily) 1 Each Tablet 1 TAB ORAL DAILY, #30 TAB 0 Refills Discharge Condition Upon Discharge: stable Discharge Disposition Patient was discharged to Home (01) Discharge Diagnoses: Discharge Instructions Discharge Instructions Special Instructions I have been assigned to complete a D/C Summary on this account. I was not involved in the patient management Jeana Pineda NP (Vanchtein) Jun 16, 2016 11:21
--- NOTE | 2016-06-16 14:21 | Diagnostic Imaging Report ---
APPROVED REPORT CPT Code: 30204 Present Symptoms Comments: Abdominal pain BILATERAL: Imaging reveals a patent deep venous system bilaterally. There is no evidence of thrombus within the femoral, popliteal or tibial segments. The greater saphenous veins are also within normal limits. Doppler indicates normal spontaneous flow within these segments.
--- NOTE | 2016-06-17 02:38 | Discharge Summary 2 SIG ---
DATE OF ADMISSION: 06/11/2016 DATE OF DISCHARGE: 06/14/2016 REASON FOR ADMISSION: A 51 years old female with known history of uterine fibroids, presented with heavy menstrual bleeding since last night. Reported to use the whole box of pads. Prior to coming to the emergency department, she passed out in the bathroom. She denied any trauma or injury to her head. She denied any precipitating headache, chest pain , shortness of breath, or dizziness. She stated that bleeding currently slowed. noted that she was pale. She denied nausea, vomiting, diarrhea, fever, chills, urinary complaints, or abdominal pain. She was admitted in December 2015 and April 2015 also for anemia and was recommended at that time to follow up with jitterbug operator for further workup. She was not followed up with [facility] [employer] as recommended. The patient's workup in the emergency department revealed hemoglobin of 6.7 and hematocrit 21.8. Coagulation profile and platelet count normal. EKG- normal sinus rhythm, no ST changes, no ectopy. Troponin negative, unlikely cardiac cause for syncope given severe vaginal bleeding and anemia. The patient transferred to the floor for further management. ADMITTING DIAGNOSES: 1. Syncope secondary to heavy menstrual bleeding. 2. Anemia. 3. Menometrorrhagia. 4. Uterine fibroids. HOSPITAL STAY: The patient admitted on the floor. The patient was transfused with a total of two units of packed red blood cells. MORTGAGE OR LOAN UNDERWRITER consult and Hematology consult were requested as well as ID consult. Hemoglobin and hematocrit remained stable after transfusion. The patient was empirically treated for urinary tract infection. Urine culture obtained after antibiotic treatment started. Anemia workup revealed low iron panel, normal B12 and folate levels. CEA within normal limits. Stool OB not collected. Iron intravenously given while in the hospital, given also that ferritin was quite low of only 6. Upon discharge, the patient was given prescription for oral iron supplement. Iron deficiency anemia secondary to heavy menstrual bleeding. The patient undergone ultrasound, transvaginal and pelvis , which revealed prominent central uterine fibroids along with multiple other fibroids, and left ovarian mass likely representing hemorrhagic cyst, recommended six weeks of followup. MORTGAGE OR LOAN UNDERWRITER, Dr. Nieves seen and evaluated the patient. She concluded that ultrasound demonstrated multiple fibroids with the largest 4.8 x 5.7 cm, increased from 3 cm on the scan from April 2015. She recommended outpatient followup, endometrial biopsy to rule out any precancer cells, treatment for the fibroid with Lupron injection or more definite treatment like hysterectomy would be a better option. She recommended the social service connect her to one of the [facility] to arrange for endometrial biopsy and hysterectomy as outpatient. Subsequently, it was done , the patient met with social service assistant and provided all the information regarding [facility] and was encouraged to follow up. According to MORTGAGE OR LOAN UNDERWRITER, the patient also needs Pap smear and mammogram as outpatient. Active bleeding stopped, hemoglobin, hematocrit pita. The patient was counseled to continue iron sulfate until surgery . She also was counseled if heavy period start again and she develops dizziness, palpitations, blackouts to come back to the emergency department. The patient was stable for discharge. DISCHARGE DIAGNOSES: 1. Syncope secondary to heavy menstrual bleeding. 2. Iron deficiency anemia secondary to heavy menstrual bleeding. 3. Status post two units of packed red blood cells blood transfusion. 4. Urinary tract infection, status post treatment. 5. Menometrorrhagia. 6. Uterine fibroids. 7. Left ovarian cyst, likely hemorrhagic cyst. DISCHARGE MEDICATIONS: See medication reconciliation list. DISCHARGE INSTRUCTIONS: The patient discharged home, to follow up with [facility] for endometrial biopsy and hysterectomy, also recommended six weeks followup transvaginal ultrasound to evaluate for ovarian cyst. Krunal Wills D.O. I have been assigned to dictate discharge summary on this account and I was not involved in the patient's management. Jeana Pineda (Vanchtein) N.PPauline DR: TEENA JOB#: [id number] CC: BIN
== END 2016-06-14 18:45 | disposition home or self-care (01) | DRG 532 ==
LOC: EDBD 06:45 → EMR 07:16 → EDBEDREQ 08:18 → 2E 08:48 → EDBEDREQ 09:56 → 2E 15:31 → 4W 06-12 18:16
PROC: 30233N1 Transfusion of Nonautologous Red Blood Cells into Peripheral Vein, Percutaneous Approach (ICD-10-PCS; principal; 2016-06-11)
DX: D25.9 Leiomyoma of uterus, unspecified (principal); D62 Acute posthemorrhagic anemia; N39.0 Urinary tract infection, site not specified; R55 Syncope and collapse; E86.0 Dehydration; N92.1 Excessive and frequent menstruation with irregular cycle; N83.202 Unspecified ovarian cyst, left side
CPT/HCPCS: 36415; 76830; 76856; 80048; 80053; 81003; 82378; 82607; 82728; 82746; 83540; 83550; 83615; 83690; 84443; 85007; 85025; 85044; 85060; 85610; 85651; 85730; 86850; 86900; 86901; 86920; 87086; 93970; 97803

== ENCOUNTER 2016-06-15 23:26 | Emergency (ER) | payer MEDICAID ==
[~2016-06-15] VITALS: Ht 154.9 cm; Wt 63.5 kg
[2016-06-16] MEDS ORDERED: Norco 5mg/325mg tab ORAL ONE (00:45)
[2016-06-16] MEDS ORDERED: NORCO 5-325 TA1 EACH ORAL (01:21)
[2016-06-16] MEDS ORDERED: KEFLEX500 MG ORAL (01:21)
[2016-06-16 01:27] VITALS: BP 108/69
[2016-06-16 01:28] VITALS: BP 108/69
[2016-06-16] MEDS ORDERED: FERROUS SULFAT325 MG ORAL (11:21)
--- NOTE | 2016-06-19 16:27 | Emergency Room Report ---
History of Present Illness General Chief Complaint: Pain Source: Patient Present Illness HPI Patient is a 51-year-old female who presented after increased left forearm pain and swelling. The patient recently been hospitalized for anemia. Patient IV placement episode of swelling. She was discharged from the hospital and noticed increased swelling for after IV was removed. Patient denied any fever. Allergies: Coded Allergies: NO KNOWN ALLERGIES (Unverified Allergy, Unknown, 05/12/15) Patient History Past Medical History: see triage record Last Menstrual Period: unk Reviewed Nursing Documentation: PMH: Agreed, PSxH: Agreed Nursing Documentation-PMH Hx Cardiac Problems: No - ANEMIA Hx Cancer: No Hx Gastrointestinal Problems: No Hx Neurological Problems: No Review of Systems All Other Systems: negative except mentioned in HPI Physical Exam Vital Signs Date Time Temp Pulse Resp B/P Pulse Ox O2 Delivery O2 Flow Rate FiO2 06/15/16 23:37 98.6 93 16 119/76 96 Room Air Sp02 EP Interpretation: reviewed, normal General Appearance: normal inspection, well appearing, no apparent distress, alert, GCS 15 - `````````` Head: atraumatic ENT: normal ENT inspection, hearing grossly normal, normal voice Neck: normal inspection, full range of motion, supple, no bony tend Respiratory: normal inspection, lungs clear, normal breath sounds, no respiratory distress, no retraction, no wheezing Cardiovascular #1: regular rate, rhythm, no edema Gastrointestinal: normal inspection, normal bowel sounds, non tender, soft, no guarding, no hernia Genitourinary: no CVA tenderness Musculoskeletal: normal inspection, back normal, normal range of motion Neurologic: normal inspection, alert, responsive, speech normal Psychiatric: normal inspection, judgement/insight normal, mood/affect normal Skin: no rash, other - swelling to left upper extremity Medical Decision Making Diagnostic Impression: Primary Impression: Phlebitis ER Course Patient presented for upper extremity swelling. Differential diagnosis include was noted to cellulitis, phlebitis, deep venous thrombosis among others.Patient presented for upper extremity swelling. Patient's benign exam and does not appear to require any further imaging or laboratory testing at this time Patient appears to have a superficial phlebitis. The patient is advised to follow up with primary care doctor in 1-2 days. Patient is advised to return if any worsening condition or if any changes in status that are concerning. Last Vital Signs Date Time Temp Pulse Resp B/P Pulse Ox O2 Delivery O2 Flow Rate FiO2 06/16/16 01:28 98.2 88 16 108/69 98 Room Air Status: improved Disposition: HOME, SELF-CARE Condition: Stable Scripts Hydrocodone Bit/Acetaminophen 5-325* (NORCO 5-325*) 1 Each Tablet 1 TAB ORAL Q6H Y for For Pain, #10 TAB 0 Refills Prov: Karan Montana 06/16/16 Cephalexin* (KEFLEX*) 500 Mg Capsule 500 MG ORAL Q6H, #28 CAP 0 Refills Prov: Karan Montana 06/16/16 Referrals: NOT CHOSEN IPA/,REFERRING (PCP) Patient Instructions: Karan Joseph Jun 19, 2016 16:27
== END 2016-06-16 01:30 | disposition home or self-care (01) ==
LOC: EMR 06-16 00:44
DX: I80.8 Phlebitis and thrombophlebitis of other sites (principal)
CPT/HCPCS: 99283

== ENCOUNTER 2017-06-27 12:42 | Emergency (ER) | payer MEDICAID ==
[~2017-06-27] VITALS: Ht 160 cm; Wt 59.0 kg
[~2017-06-27 12:42] MED LIST changes: +FERROUS SULFAT325 MG ORAL; +KEFLEX500 MG ORAL; +NORCO 5-325 TA1 EACH ORAL; +PHENERGAN25 M1 PO
[2017-06-27] MEDS ORDERED: KENALOG 0.025%15 GM APPLIC (13:01)
[2017-06-27] MEDS ORDERED: CEPHALEXIN500 MG ORAL (13:01)
[2017-06-27 13:05] VITALS: BP 150/72
--- NOTE | 2017-06-27 14:33 | Emergency Room Report ---
History of Present Illness General Chief Complaint: Skin Rash/Abscess Source: Patient Present Illness HPI The patient is a 52-year-old female presenting for right leg insect bite. She states that she noticed this yesterday after sikh. She noticed 2 red bumps on her leg which have now increased in size. She denies any pain but does admit to itching. She denies other symptoms including fever, chills, numbness, tingling Allergies: Coded Allergies: NO KNOWN ALLERGIES (Unverified Allergy, Unknown, 05/12/15) Uncoded Allergies: PENCILLIN (Allergy, Mild, Itching, 05/26/17) Patient History Past Medical History: see triage record Pertinent Family History: none Reviewed Nursing Documentation: PMH: Agreed, PSxH: Agreed Nursing Documentation-PMH Hx Cardiac Problems: No - ANEMIA Hx Cancer: No Hx Gastrointestinal Problems: No Hx Neurological Problems: No Review of Systems All Other Systems: negative except mentioned in HPI Physical Exam Vital Signs Date Time Temp Pulse Resp B/P (MAP) Pulse Ox O2 Delivery O2 Flow Rate FiO2 06/27/17 12:45 97.9 76 20 167/77 99 Room Air Sp02 EP Interpretation: reviewed, normal General Appearance: no apparent distress, alert, GCS 15, non-toxic Head: normocephalic, atraumatic Eyes: bilateral eye normal inspection, bilateral eye PERRL Musculoskeletal: back normal, gait/station normal, normal range of motion, no calf tenderness, tender - over the lesions on R lower leg Neurologic: alert, oriented x3, responsive, motor strength/tone normal, sensory intact, speech normal Psychiatric: judgement/insight normal, memory normal, mood/affect normal, no suicidal/homicidal ideation Skin: rash - 2 circular erytematous lesions of the R anterior lower leg. TTP. Indurated. No central clearing Lymphatic: no adenopathy Medical Decision Making PA Attestation Dr. Delacruz is my supervising physician. Patient management was discussed with my supervising physician Diagnostic Impression: Primary Impression: Insect bite Qualified Codes: W57.XXXA - Bitten or stung by nonvenomous insect and other nonvenomous arthropods, initial encounter ER Course The patient is a 52-year-old female presenting for right leg insect bite. Ddx considered include but not limited to insect bite, contact dermatitis, eczema, cellulitis, among others PE: afebrile. NAD 2 circular erythematous lesions of the R anterior lower leg. TTP. Indurated. No central clearing The patient is discharged home with prescription for topical steroids as well as antibiotics for likely cellulitis. ER precautions are given Last Vital Signs Date Time Temp Pulse Resp B/P (MAP) Pulse Ox O2 Delivery O2 Flow Rate FiO2 06/27/17 13:05 97.9 78 19 150/72 100 Room Air Status: improved Disposition: HOME, SELF-CARE Condition: Improved Scripts Cephalexin* (KEFLEX*) 500 Mg Capsule 500 MG ORAL EVERY 12 HOURS, #14 CAP 0 Refills Prov: SHYLA LAZCANO 06/27/17 Triamcinolone Acet (Triamcinolone Acetonide) 15 Gm Cream..g. 0.1 % APPLIC TID, #15 GM Prov: SHYLA LAZCANO 06/27/17 Referrals: NOT CHOSEN IPA/MD,REFERRING (PCP) Patient Instructions: Rash, Insect Bite Additional Instructions: I discussed my findings with the patient. All questions and concerns have been answered. Treatment and medication compliance have been addressed. I advised the patient that they need to follow up with PMD in 3-5 days. Return to ED if symptoms worsen, new symptoms arise, or if needed for any reason. Patient verbalized understanding of discharge instructions. SHYLA LAZCANO Jun 27, 2017 14:33
== END 2017-06-27 13:05 | disposition home or self-care (01) ==
LOC: EMR 12:50
DX: S80.861A Insect bite (nonvenomous), right lower leg, initial encounter (principal); Z88.0 Allergy status to penicillin; W57.XXXA Bitten or stung by nonvenomous insect and other nonvenomous arthropods, initial encounter; Y92.22 Religious institution as the place of occurrence of the external cause
CPT/HCPCS: 99283

== ENCOUNTER 2017-12-07 11:05 | Emergency (ER) | payer MEDICAID ==
[~2017-12-07] VITALS: Ht 154.9 cm; Wt 65.8 kg
[~2017-12-07 11:05] MED LIST changes: +CEPHALEXIN500 MG ORAL; +KENALOG 0.025%15 GM APPLIC
[2017-12-07 11:25] VITALS: BP 179/92
[2017-12-07] MEDS ORDERED: HYDROCORTISONE30 G2 TP (12:21)
[2017-12-07] MEDS ORDERED: BENADRYL25 MG ORAL (12:21)
--- NOTE | 2017-12-07 12:22 | Emergency Room Report ---
History of Present Illness General Chief Complaint: General Complaint Source: Patient Present Illness HPI 52-year-old female patient presents ER complaining of bug bites on right arm x1 day. patient reports itching and swelling and sites of bites.denies bleeding or drainage from site of wounds. Denies seeing bugs. Denies history of diabetes. Denies fever, chest pain, shortness of breath, vomiting, tongue swelling, abdominal pain, diarrhea. has not taken any medications for relief of symptoms. Allergies: Coded Allergies: AVOCADO (Verified Allergy, Unknown, 12/07/17) NO KNOWN ALLERGIES (Unverified Allergy, Unknown, 05/12/15) Uncoded Allergies: PENCILLIN (Allergy, Mild, Itching, 05/26/17) Patient History Past Medical History: see triage record Last Menstrual Period: n/a Reviewed Nursing Documentation: PMH: Agreed; PSxH: Agreed Nursing Documentation-PMH Past Medical History: No Stated History Hx Cardiac Problems: No - ANEMIA Hx Cancer: No Hx Gastrointestinal Problems: No Hx Neurological Problems: No Review of Systems All Other Systems: negative except mentioned in HPI Physical Exam Vital Signs Date Time Temp Pulse Resp B/P (MAP) Pulse Ox O2 Delivery O2 Flow Rate FiO2 12/07/17 11:16 98.1 66 16 179/92 98 Room Air 98.1 Sp02 EP Interpretation: reviewed, normal General Appearance: well appearing, no apparent distress, alert, GCS 15, non- toxic Head: normocephalic, atraumatic Eyes: bilateral eye normal inspection, bilateral eye PERRL Neck: full range of motion Respiratory: lungs clear, normal breath sounds, no rhonchi, no respiratory distress, no accessory muscle use, no wheezing, speaking full sentences Cardiovascular #1: regular rate, rhythm, no edema Neurologic: alert, oriented x3, responsive, motor strength/tone normal, sensory intact Psychiatric: mood/affect normal Skin: other - right forearm: <2cm area erythematous papule, no fluctuance or induration, no palpable nodule, does not come to a point, no draining or bite collazo; right posterior shoulder: 2 erythematous maculopapular lesions, no surrounding erythema or edema, no drainage, no blisers, no palpable nodules; no bite collazo, no target sign, no induration or flutuance, no red streaking, no vesicles or blisters Medical Decision Making PA Attestation Dr. Valero is my supervising Physician whom patient management has been discussed with. Diagnostic Impression: Primary Impression: Bug bite ER Course Pt. presents to the ED c/o bug bite. Ddx considered but are not limited to atopic dermatitis, bug bite, urticaria, allergic reaction. Vital signs: are WNL, pt. is afebrile ER COURSE: physical exam shows 3 approximately once meter erythematous bumps consistent with possible insect bites. No bite collazo visualized. No surrounding erythema and edema consistent with cellulitis, does not require antibiotics at this time. No palpable nodule or areas of induration or fluctuance consistent with abscess, does not require I and D at this time. Likely localize inflammatory reaction secondary to bug bite. Patient reports that she is not taking any medication for relief of symptoms. instructed patient to take Benadryl for relief of itching symptoms and to help with swelling. instructed patient not to scratch or itch, apply cool compresses to help with swelling symptoms. provided with Rx for hydrocortisone cream, apply small amount of cream to affected area, do not apply to face or skin creases. Follow-up with primary care provider for wound check in 2-3 days. Return to ER for new or worsening of symptoms including but not limited to fever, chest pain, shortness of breath , tongue swelling, worsening of rash, red streaking. DISCHARGE: -Rx given for Benadryl for pruritis. SE drowsiness, do not take prior to drinking, driving, operating heavy machinery. -Rx given for hydrocortisone cream. -Patient instructed to apply cool compresses to affected area. At this time pt. is stable for d/c to home. Patient resting comfortably, in no acute distress, nontoxic appearing. Care plan and follow up instructions have been discussed with the patient prior to discharge. Patient provided with printed patient care instructions, and any necessary prescriptions. Patient instructed to follow-up with primary care provider in 3 - 5 days. Patient questions asked and answered. Patient reports understanding and agreement to treatment plan. ER precautions given. Patient instructed to return to ER immediately for any new or worsening of symptoms including but not limited to increasing SOB, persistent fever. - Please note that this Emergency Department Report was dictated using [employer] technology software, occasionally this can lead to erroneous entry secondary to interpretation by the dictation equipment. Last Vital Signs Date Time Temp Pulse Resp B/P (MAP) Pulse Ox O2 Delivery O2 Flow Rate FiO2 7/24/18 11:25 98.1 84 16 179/92 98 Room Air 98.1 Disposition: HOME, SELF-CARE Condition: Stable Scripts Hydrocortisone (Hydrocortisone Cream 2.5%) Y Cream.appl 1 APPLIC TP BID, #30 GM Prov: Brando Simon 12/07/17 Diphenhydramine Hcl* (BENADRYL*) 25 Mg Capsule 25 MG ORAL DAILY PRN for Itching, #30 CAP Prov: Brando Simon 12/07/17 Referrals: NOT CHOSEN [facility]/MD,REFERRING (PCP) Patient Instructions: Insect Bite, [id number] Additional Instructions: Followup with primary care provider in 3 -5 days. Take medications as directed. Do not take Benadryl prior to drinking, driving, operating machinery, may cause drowsiness. Apply small amount of cream to affected area, do not apply to face or skin creases. Patient questions asked and answered. ER precautions given, patient instructed to return to ER immediately for any new or worsening of symptoms including but not limited to vomiting, chest pain, shortness of breath, red streaking, worsening of rash symptoms. Brando Simon Dec 07, 2017 12:22
[2017-12-07 12:26] VITALS: BP 145/87
[2017-12-07 12:27] VITALS: BP 145/87
== END 2017-12-07 12:27 | disposition home or self-care (01) ==
LOC: EMR 12:05
DX: S40.261A Insect bite (nonvenomous) of right shoulder, initial encounter (principal); S50.861A Insect bite (nonvenomous) of right forearm, initial encounter; W57.XXXA Bitten or stung by nonvenomous insect and other nonvenomous arthropods, initial encounter; Y92.9 Unspecified place or not applicable
CPT/HCPCS: 99284